=== PATIENT | female | born 1940 | race Caucasian/White ===

== ENCOUNTER 2016-06-26 13:36 | Emergency (ER) | payer MEDICARE ==
[2016-06-26] MEDS ORDERED: ASPIRIN 81 MG CHEWABLE TABLET PO ONE (13:50)
--- NOTE | 2016-06-26 13:54 | Emergency Department Record ---
History of Present Illness - General Chief Complaint: Chest Pain Stated Complaint: PAIN UNDER RT BREAST AND RT SIDE Time Seen by Provider: 06/26/16 13:49 Source: Patient, RN notes reviewed Mode of Arrival: Ambulatory - History of Present Illness Initial Comments: right chest walll pain worse with rotation of her shoulders and worse when I palpated in that area and she states slight congestion and cough. History of fibromyalgia MD Complaint: Chest pain Onset/Timin -: Days(s) Pain Location: Right chest Pain Radiation: Back Severity: Moderate Severity scale (1-10): 8 Quality: Dull, Sharp Consistency: Constant Improves With: Rest Worsens With: Exertion, Inspiration, Movement - Related Data Home Medications Medication Instructions Recorded Confirmed Last Taken Duloxetine HCl [Cymbalta] 60 mg PO DAILY 10/22/14 06/26/16 1 Day Ago Hydroxyzine HCl 25 mg PO TID 10/22/14 06/26/16 1 Day Ago Omeprazole [Prilosec] 40 mg PO DAILY 10/22/14 06/26/16 1 Day Ago Pregabalin [Lyrica] 225 mg PO BID 10/22/14 06/26/16 1 Day Ago Tiotropium [place] [Spiriva] 18 mcg IH DAILY 10/22/14 06/26/16 1 Day Ago Triazolam 1 - 2 tab PO QHS PRN 10/22/14 06/26/16 1 Day Ago Cholecalciferol (Vitamin D3) 50,000 unit PO WEEKLY 11/23/15 06/26/16 1 Day Ago [Vitamin D3] Naproxen [Naprosyn] 500 mg PO BID 11/23/15 06/26/16 1 Day Ago Acetaminophen [Tylenol 500Mg Tab] 500 mg PO Q6H 06/26/16 06/26/16 1 Day Ago Alendronate Sodium [Fosamax] 70 mg PO WEEKLY 06/26/16 06/26/16 1 Day Ago Amitriptyline HCl 100 mg PO QPM 06/26/16 06/26/16 1 Day Ago Benzonatate [Tessalon] 1 cap PO Q8H PRN 06/26/16 06/26/16 1 Day Ago Buspirone HCl [Buspar] 10 mg PO BID 06/26/16 06/26/16 1 Day Ago Hydrocodone/Acetaminophen [[place] 1 tab PO Q6H PRN 06/26/16 06/26/16 1 Day Ago 5mg/325mg] Multivitamin [Daily Multiple 1 each PO DAILY 06/26/16 06/26/16 1 Day Ago Vitamin] Previous Rx's Medication Instructions Recorded Amoxicillin [Amoxil] 500 mg PO TID #30 tab 06/26/16 Naproxen [Naprosyn] 500 mg PO Q12H #20 tab 06/26/16 Allergies Allergy/AdvReac Type Severity Reaction Status Date / Time nortriptyline HCl Allergy Unknown ALTERED Verified 06/26/16 13:52 [From [facility]] MENTAL STATUS Travel Screening - Travel/Exposure Within Last 30 Days Have you traveled within the last 30 days?: No - Travel/Exposure Within Last Year Have you traveled outside the [place] in the last year?: No - Additonal Travel Details Have you been exposed to anyone with a communicable illness?: No - Travel Symptoms Symptom Screening: None Review of Systems Reviewed: No additional complaints except as noted below Constitutional: Reports: As per HPI. Denies: Chills, Fever, Malaise, Night sweats, Weakness, Weight change Eyes: Reports: As per HPI. Denies: Eye discharge, Eye pain, Photophobia, Vision change ENT: Reports: As per HPI. Denies: Congestion, Dental pain, Ear pain, Epistaxis , Hearing loss, Throat pain Respiratory: Reports: As per HPI. Denies: Cough, Dyspnea, Hemoptysis, Stridor, Wheezes Cardiovascular: Reports: As per HPI, Chest pain. Denies: Arrhythmia, Dyspnea on exertion, Edema, Murmurs, Orthopnea, Palpitations, Paroxysmal nocturnal dyspnea, Rheumatic Fever, Syncope Endocrine: Reports: As per HPI. Denies: Fatigue, Heat or cold intolerance, Polydipsia, Polyuria Gastrointestinal: Reports: As per HPI. Denies: Abdominal pain, Constipation, Diarrhea, Hematemesis, Hematochezia, Melena, Nausea, Vomiting Genitourinary: Reports: As per HPI. Denies: Abnormal menses, Discharge, Dyspareunia, Dysuria, Frequency, Hematuria, Incontinence, Retention, Urgency Musculoskeletal: Reports: As per HPI. Denies: Arthralgia, Back pain, Gout, Joint swelling, Myalgia, Neck pain Skin: Reports: As per HPI. Denies: Bruising, Change in color, Change in hair/ nails, Lesions, Pruritus, Rash Neurological: Reports: As per HPI. Denies: Abnormal gait, Confusion, Headache, Numbness, Paresthesias, Seizure, Tingling, Tremors, Vertigo, Weakness Psychiatric: Reports: As per HPI. Denies: Anxiety, Auditory hallucinations, Depression, Homicidal thoughts, Suicidal thoughts, Visual hallucinations Hematological/Lymphatic: Reports: As per HPI. Denies: Anemia, Blood Clots, Easy bleeding, Easy bruising, Swollen glands Past Medical History - SOCIAL HISTORY Smoking Status: Current every day smoker Alcohol Use: None Drug Use: None - RESPIRATORY Hx Respiratory Disorders: Yes Hx COPD: Yes - CARDIOVASCULAR Hx Cardio Disorders: No - NEURO Hx Neuro Disorders: Yes Hx Neuropathy: Yes - GI Hx GI Disorders: Yes Hx Reflux: Yes Hx of Polyps: Yes - Hx Genitourinary Disorders: No - ENDOCRINE Hx Endocrine Disorders: Yes Hx Thyroid Disease: Yes (Hyper) - MUSCULOSKELETAL Hx Musculoskeletal Disorders: Yes Hx Arthritis: Yes Hx Fibromyalgia: Yes Hx Osteoporosis: Yes - PSYCH Hx Psych Problems: Yes Hx Anxiety: Yes Hx Depression: Yes - HEMATOLOGY/ONCOLOGY Hx Hematology/Oncology Disorders: No Family Medical History Any Significant Family History?: Yes Family Hx Comment (NOT TO BE USED IN PLACE OF ITEMS BELOW): Unknown mimimal contact with family Hx Dementia: Mother Hx Heart Disease: Mother Physical Exam - General General Appearance: Alert, Oriented x3, Cooperative, No acute distress - Head Head exam: Normal inspection - Eye Eye exam: Normal appearance, PERRL Pupils: Normal accommodation - ENT ENT exam: Normal exam, Mucous membranes moist, Normal external ear exam, Normal orophraynx, TM's normal bilaterally Ear exam: Normal external inspection. negative: External canal tenderness Nasal Exam: Normal inspection. negative: Discharge, Sinus tenderness Mouth exam: Normal external inspection, Tongue normal Teeth exam: Normal inspection. negative: Dental caries Throat exam: Normal inspection. negative: Tonsillar erythema, Tonsillar exudate - Neck Neck exam: Normal inspection, Full ROM. negative: Tenderness - Respiratory Respiratory exam: Normal lung sounds bilaterally, Chest wall tenderness (right side and some in the area of the right scapula). negative: Respiratory distress - Cardiovascular Cardiovascular Exam: Regular rate, Normal rhythm, Normal heart sounds - GI/Abdominal GI/Abdominal exam: Soft, Normal bowel sounds. negative: Tenderness - Rectal Rectal exam: Deferred - exam: Deferred - Extremities Extremities exam: Normal inspection, Full ROM, Normal capillary refill. negative: Tenderness - Back Back exam: Reports: Normal inspection, Full ROM. Denies: Muscle spasm, Rash noted, Tenderness - Neurological Neurological exam: Alert, Normal gait, Oriented X3, Reflexes normal - Psychiatric Psychiatric exam: Normal affect, Normal mood - Skin Skin exam: Dry, Intact, Normal color, Warm Course Vital Signs 06/26/16 13:43 Temperature 98.2 F Pulse Rate 85 Respiratory 18 Rate Blood Pressure 195/98 Pulse Ox 94 L Medical Decision Making - Lab Data Result diagrams: 06/26/16 14:15 06/26/16 14:15 Disposition Clinical Impression: Bronchitis, Fibromyalgia muscle pain, Costochondritis, acute Disposition: Home, Self-Care Condition: (1) Good Instructions: Costochondritis (ED), Acute Bronchitis (ED) Additional Instructions: follow up with primary DrSeema in 2 days Prescriptions: Amoxicillin [Amoxil] 500 mg PO TID #30 tab Naproxen [Naprosyn] 500 mg PO Q12H #20 tab.dr Forms: Patient Portal Access Time of Disposition: 15:15
[2016-06-26 14:28] LABS: HEMATOCRIT 43.2 % (35.0-47.0); HEMOGLOBIN 14.8 gm/dl (11.6-16.0); MEAN CELL VOLUME 91.1 fl (81-97); MEAN CORPUSCULAR HEMOGLOBIN 31.2 pg (27-33); MEAN CORPUSCULAR HGB CONC 34.3 g/dl (32-36); MEAN PLATELET VOLUME 9.2 fl (7.4-10.4); PLATELET COUNT 305 K/uL (130-400); RED BLOOD COUNT 4.74 M/uL (3.80-5.40); RED CELL DISTRIBUTION WIDTH 15.6 % (11.5-14.5); WHITE BLOOD COUNT W/O DIFF 9.8 K/uL (4.2-12.2)
[2016-06-26 14:36] LABS: ANION GAP 11.7 (7-16); BLOOD UREA NITROGEN 13 mg/dL (7-17); CARBON DIOXIDE 22.3 mmol/L (22-30); CREATININE 0.9 mg/dL (0.52-1.04); EST GLOMERULAR FILTRATION RATE > 60 ml/min; GLUCOSE,RANDOM 135 mg/dL (70-110)
[2016-06-26] MEDS ORDERED: IPRATROPIUM/ALBUTEROL (0.5MG/3MG) NEB INH ONE (14:42)
[2016-06-26 14:49] LABS: CKMB 0.9 ug/L (0-6); TROPONIN I < 0.012 ng/mL (0.00-0.034)
--- NOTE | 2016-07-01 16:28 | RADIOLOGY REPORT ---
DATE: 06/26/2016 at 14:24 hours. EXAM: TWO-VIEW CHEST. HISTORY: Right lateral chest pain radiating to breast. Chronic obstructive pulmonary disease. COMPARISON: Chest x-ray dated 01/19/2016. TECHNIQUE: Two views of the chest were obtained. FINDINGS: The lungs are hyperinflated, although are otherwise clear. Slight articular prominence throughout the lungs, particularly at the lung bases consistent with chronic interstitial change. No infiltrate. Cardiomediastinal silhouette is top normal in size. The diaphragm is unremarkable. Osteopenia with minimal chronic compression deformity in the lower thoracic spine. IMPRESSION: 1. NO ACUTE INTRATHORACIC PROCESS WITH NO CHANGE. 2. EMPHYSEMA WITH CHRONIC INTERSTITIAL CHANGE. JOB NUMBER: [id number] [facility]
== END 2016-06-26 15:25 | disposition home or self-care (01) ==
LOC: ER 13:36
DX: J20.9 Acute bronchitis, unspecified (principal); M94.0 Chondrocostal junction syndrome [Tietze]; M79.7 Fibromyalgia; J44.9 Chronic obstructive pulmonary disease, unspecified; F17.210 Nicotine dependence, cigarettes, uncomplicated
CPT/HCPCS: 71020; 80048; 82553; 84484; 85027; 85730; 93005; 93010; 94640; 99284

== ENCOUNTER 2016-06-30 08:07 | Emergency (ER) | payer MEDICARE ==
--- NOTE | 2016-06-30 08:52 | Emergency Department Record ---
History of Present Illness - General Chief complaint: Nausea, Vomiting, Diarrhea Stated complaint: LOOSE STOOL Time Seen by Provider: 06/30/16 08:50 Source: Patient Mode of Arrival: Wheelchair - History of Present Illness Initial comments: diarrrhea stool times 20 over 24 hours and she is drinking water and coffee. Patient stopped her naprosyn already yesterday and she still has diarrhea. complaint: Diarrhea Onset/Timin -: Days(s) Improves with: None Worsens with: None Associated Symptoms: Malaise, Myalgias - Related Data Home Medications Medication Instructions Recorded Confirmed Last Taken Duloxetine HCl [Cymbalta] 60 mg PO DAILY 10/22/14 06/30/16 06/30/16 Hydroxyzine HCl 25 mg PO TID 10/22/14 06/30/16 06/30/16 Omeprazole [Prilosec] 40 mg PO DAILY 10/22/14 06/30/16 06/30/16 Pregabalin [Lyrica] 225 mg PO BID 10/22/14 06/30/16 06/30/16 Tiotropium [place] [Spiriva] 18 mcg IH DAILY 10/22/14 06/30/16 06/30/16 Triazolam 1 - 2 tab PO QHS PRN 10/22/14 06/30/16 06/30/16 Cholecalciferol (Vitamin D3) 50,000 unit PO WEEKLY 11/23/15 06/30/16 06/30/16 [Vitamin D3] Naproxen [Naprosyn] 500 mg PO BID 11/23/15 06/30/16 06/30/16 Acetaminophen [Tylenol 500Mg Tab] 500 mg PO Q6H 06/26/16 06/30/16 06/30/16 Alendronate Sodium [Fosamax] 70 mg PO WEEKLY 06/26/16 06/30/16 06/30/16 Amitriptyline HCl 100 mg PO QPM 06/26/16 06/30/16 06/30/16 Benzonatate [Tessalon] 1 cap PO Q8H PRN 06/26/16 06/30/16 06/30/16 Buspirone HCl [Buspar] 10 mg PO BID 06/26/16 06/30/16 06/30/16 Hydrocodone/Acetaminophen [[place] 1 tab PO Q6H PRN 06/26/16 06/30/16 06/30/16 5mg/325mg] Multivitamin [Daily Multiple 1 each PO DAILY 06/26/16 06/30/16 06/30/16 Vitamin] Previous Rx's Medication Instructions Recorded Amoxicillin [Amoxil] 500 mg PO TID #30 tab 06/26/16 Naproxen [Naprosyn] 500 mg PO Q12H #20 tab. 06/26/16 Loperamide HCl [Immodium] 2 mg PO Q6HR #10 capsule 06/30/16 Allergies Allergy/AdvReac Type Severity Reaction Status Date / Time nortriptyline HCl Allergy Unknown ALTERED Verified 06/30/16 08:13 [From [facility]] MENTAL STATUS Travel Screening - Travel/Exposure Within Last 30 Days Have you traveled within the last 30 days?: No - Travel/Exposure Within Last Year Have you traveled outside the [place] in the last year?: No - Additonal Travel Details Have you been exposed to anyone with a communicable illness?: No - Travel Symptoms Symptom Screening: None Review of Systems Reviewed: No additional complaints except as noted below Constitutional: Reports: As per HPI. Denies: Chills, Fever, Malaise, Night sweats, Weakness, Weight change Eyes: Reports: As per HPI. Denies: Eye discharge, Eye pain, Photophobia, Vision change ENT: Reports: As per HPI. Denies: Congestion, Dental pain, Ear pain, Epistaxis , Hearing loss, Throat pain Respiratory: Reports: As per HPI. Denies: Cough, Dyspnea, Hemoptysis, Stridor, Wheezes Cardiovascular: Reports: As per HPI. Denies: Arrhythmia, Chest pain, Dyspnea on exertion, Edema, Murmurs, Orthopnea, Palpitations, Paroxysmal nocturnal dyspnea, Rheumatic Fever, Syncope Endocrine: Reports: As per HPI. Denies: Fatigue, Heat or cold intolerance, Polydipsia, Polyuria Gastrointestinal: Reports: As per HPI, Diarrhea. Denies: Abdominal pain, Constipation, Hematemesis, Hematochezia, Melena, Nausea, Vomiting Genitourinary: Reports: As per HPI. Denies: Abnormal menses, Discharge, Dyspareunia, Dysuria, Frequency, Hematuria, Incontinence, Retention, Urgency Musculoskeletal: Reports: As per HPI. Denies: Arthralgia, Back pain, Gout, Joint swelling, Myalgia, Neck pain Skin: Reports: As per HPI. Denies: Bruising, Change in color, Change in hair/ nails, Lesions, Pruritus, Rash Neurological: Reports: As per HPI. Denies: Abnormal gait, Confusion, Headache, Numbness, Paresthesias, Seizure, Tingling, Tremors, Vertigo, Weakness Psychiatric: Reports: As per HPI. Denies: Anxiety, Auditory hallucinations, Depression, Homicidal thoughts, Suicidal thoughts, Visual hallucinations Hematological/Lymphatic: Reports: As per HPI. Denies: Anemia, Blood Clots, Easy bleeding, Easy bruising, Swollen glands Past Medical History - SOCIAL HISTORY Smoking Status: Current every day smoker Alcohol Use: None Drug Use: None - RESPIRATORY Hx Respiratory Disorders: Yes Hx COPD: Yes - CARDIOVASCULAR Hx Cardio Disorders: No - NEURO Hx Neuro Disorders: Yes Hx Neuropathy: Yes - GI Hx GI Disorders: Yes Hx Reflux: Yes Hx of Polyps: Yes - Hx Genitourinary Disorders: No - ENDOCRINE Hx Endocrine Disorders: Yes Hx Thyroid Disease: Yes (Hyper) - MUSCULOSKELETAL Hx Musculoskeletal Disorders: Yes Hx Arthritis: Yes Hx Fibromyalgia: Yes Hx Osteoporosis: Yes - PSYCH Hx Psych Problems: Yes Hx Anxiety: Yes Hx Depression: Yes - HEMATOLOGY/ONCOLOGY Hx Hematology/Oncology Disorders: No Family Medical History Any Significant Family History?: Yes Family Hx Comment (NOT TO BE USED IN PLACE OF ITEMS BELOW): Unknown mimimal contact with family Hx Dementia: Mother Hx Heart Disease: Mother Physical Exam - General General Appearance: Alert, Oriented x3, Cooperative, No acute distress - Head Head exam: Normal inspection - Eye Eye exam: Normal appearance, PERRL Pupils: Normal accommodation - ENT ENT exam: Normal exam, Mucous membranes moist, Normal external ear exam, Normal orophraynx, TM's normal bilaterally Ear exam: Normal external inspection. negative: External canal tenderness Nasal Exam: Normal inspection. negative: Discharge, Sinus tenderness Mouth exam: Normal external inspection, Tongue normal Teeth exam: Normal inspection. negative: Dental caries Throat exam: Normal inspection. negative: Tonsillar erythema, Tonsillar exudate - Neck Neck exam: Normal inspection, Full ROM. negative: Tenderness - Respiratory Respiratory exam: Normal lung sounds bilaterally. negative: Respiratory distress - Cardiovascular Cardiovascular Exam: Regular rate, Normal rhythm, Normal heart sounds - GI/Abdominal GI/Abdominal exam: Soft, Normal bowel sounds. negative: Tenderness - Rectal Rectal exam: Deferred - exam: Deferred - Extremities Extremities exam: Normal inspection, Full ROM, Normal capillary refill. negative: Tenderness - Back Back exam: Reports: Normal inspection, Full ROM. Denies: Muscle spasm, Rash noted, Tenderness - Neurological Neurological exam: Alert, Normal gait, Oriented X3, Reflexes normal - Psychiatric Psychiatric exam: Normal affect, Normal mood - Skin Skin exam: Dry, Intact, Normal color, Warm Course Vital Signs 06/30/16 08:35 Temperature 97.7 F Pulse Rate 101 H Respiratory 18 Rate Blood Pressure 159/77 Pulse Ox 97 Medical Decision Making - Data Complexity MDM Data: Labs Ordered and/or Reviewed (negative) - Lab Data Result diagrams: 06/30/16 09:25 06/30/16 09:31 Disposition Clinical Impression: Acute diarrhea Disposition: Home, Self-Care Condition: (1) Good Instructions: Acute Diarrhea (ED) Additional Instructions: clear liquids follow up with in 3 days Prescriptions: Loperamide HCl [Immodium] 2 mg PO Q6HR #10 capsule Forms: Patient Portal Access Time of Disposition: 10:21
[2016-06-30] MEDS: 0.9 % SODIUM CHLORIDE 1,000 ML BAG IV ONE (09:25)
[2016-06-30 09:40] LABS: HEMATOCRIT 48.3 % (35.0-47.0); HEMOGLOBIN 16.9 gm/dl (11.6-16.0); MEAN CELL VOLUME 90.3 fl (81-97); MEAN PLATELET VOLUME 8.7 fl (7.4-10.4); PLATELET COUNT 374 K/uL (130-400); RED BLOOD COUNT 5.35 M/uL (3.80-5.40); RED CELL DISTRIBUTION WIDTH 15.8 % (11.5-14.5); WHITE BLOOD COUNT W/O DIFF 11.7 K/uL (4.2-12.2)
[2016-06-30 09:41] LABS: MEAN CORPUSCULAR HEMOGLOBIN 31.5 pg (27-33)
[2016-06-30 09:47] LABS: ANION GAP 13.5 (7-16); BLOOD UREA NITROGEN 12 mg/dL (7-17); CARBON DIOXIDE 22.5 mmol/L (22-30); CREATININE 0.9 mg/dL (0.52-1.04); EST GLOMERULAR FILTRATION RATE > 60 ml/min; GLUCOSE,RANDOM 103 mg/dL (70-110)
[2016-06-30 10:01] LABS: PLATELET ESTIMATE NORMAL (NORMAL)
== END 2016-06-30 10:45 | disposition home or self-care (01) ==
LOC: ER 08:07
DX: R19.7 Diarrhea, unspecified (principal); R11.2 Nausea with vomiting, unspecified; R53.81 Other malaise
CPT/HCPCS: 80048; 85027; 87427; 87493; 96360; 99284; J7030

== ENCOUNTER 2016-10-09 11:16 | Emergency (ER) | payer MEDICARE ==
[2016-10-09] MEDS: KETOROLAC 60 MG/2 ML VIAL IM STA (12:23)
--- NOTE | 2016-10-09 12:33 | Emergency Department Record ---
History of Present Illness - General Chief complaint: Pain Stated complaint: PAIN Time Seen by Provider: 10/09/16 11:42 Source: Patient, RN notes reviewed Mode of Arrival: Ambulatory - History of Present Illness Initial comments: this feels like her typical back pain but worse and it mostly in the back left thorcic side and worse with motion of her shoulders and palpation of her left thoracic area. Her Dr. will only give her 30 norco's per month and she takes three norcos per day.No chest pain or abdominal pain or leg or arm pains except for her underlying firbromylasia pain. Location: Other History of Same: Yes Radiation: Proximal, Distal Severity scale (1-10): 10 Quality: Aching Consistency: Constant Improves with: Nothing Worsens with: Nothing Associated Symptoms: Denies other symptoms - Related Data Home Medications Medication Instructions Recorded Confirmed Last Taken Duloxetine HCl [Cymbalta] 60 mg PO DAILY 10/22/14 10/09/16 10/08/16 Omeprazole [Prilosec] 40 mg PO DAILY 10/22/14 10/09/16 10/08/16 Pregabalin [Lyrica] 225 mg PO BID 10/22/14 10/09/16 10/08/16 Tiotropium [place] [Spiriva] 18 mcg IH DAILY 10/22/14 10/09/16 10/08/16 Triazolam 1 - 2 tab PO QHS PRN 10/22/14 10/09/16 10/08/16 Cholecalciferol (Vitamin D3) 50,000 unit PO WEEKLY 11/23/15 10/09/16 10/08/16 [Vitamin D3] Naproxen [Naprosyn] 500 mg PO BID 11/23/15 10/09/16 10/08/16 Acetaminophen [Tylenol 500Mg Tab] 500 mg PO Q6H 06/26/16 10/09/16 10/08/16 Amitriptyline HCl 100 mg PO QPM 06/26/16 10/09/16 10/08/16 Buspirone HCl [Buspar] 10 mg PO BID 06/26/16 10/09/16 10/08/16 Hydrocodone/Acetaminophen [[place] 1 tab PO Q6H PRN 06/26/16 10/09/16 10/08/16 5mg/325mg] Multivitamin [Daily Multiple 1 each PO DAILY 06/26/16 10/09/16 10/08/16 Vitamin] Temazepam [Restoril] 15 mg PO QHS 10/09/16 10/09/16 Unknown Previous Rx's Medication Instructions Recorded Naproxen [Naprosyn] 500 mg PO Q12H #20 tab. 06/26/16 Hydrocodone/Acetaminophen [[place] 1 tab PO Q6H PRN #6 tab 10/09/16 5mg/325mg] Allergies Allergy/AdvReac Type Severity Reaction Status Date / Time nortriptyline HCl Allergy Unknown ALTERED Verified 10/09/16 11:45 [From [facility]] MENTAL STATUS Travel Screening - Travel/Exposure Within Last 30 Days Have you traveled within the last 30 days?: No Review of Systems Reviewed: No additional complaints except as noted below Constitutional: Reports: As per HPI. Denies: Chills, Fever, Malaise, Night sweats, Weakness, Weight change Eyes: Reports: As per HPI. Denies: Eye discharge, Eye pain, Photophobia, Vision change ENT: Reports: As per HPI. Denies: Congestion, Dental pain, Ear pain, Epistaxis , Hearing loss, Throat pain Respiratory: Reports: As per HPI. Denies: Cough, Dyspnea, Hemoptysis, Stridor, Wheezes Cardiovascular: Reports: As per HPI. Denies: Arrhythmia, Chest pain, Dyspnea on exertion, Edema, Murmurs, Orthopnea, Palpitations, Paroxysmal nocturnal dyspnea, Rheumatic Fever, Syncope Endocrine: Reports: As per HPI. Denies: Fatigue, Heat or cold intolerance, Polydipsia, Polyuria Gastrointestinal: Reports: As per HPI. Denies: Abdominal pain, Constipation, Diarrhea, Hematemesis, Hematochezia, Melena, Nausea, Vomiting Genitourinary: Reports: As per HPI. Denies: Abnormal menses, Discharge, Dyspareunia, Dysuria, Frequency, Hematuria, Incontinence, Retention, Urgency Musculoskeletal: Reports: As per HPI, Back pain. Denies: Arthralgia, Gout, Joint swelling, Myalgia, Neck pain Skin: Reports: As per HPI. Denies: Bruising, Change in color, Change in hair/ nails, Lesions, Pruritus, Rash Neurological: Reports: As per HPI. Denies: Abnormal gait, Confusion, Headache, Numbness, Paresthesias, Seizure, Tingling, Tremors, Vertigo, Weakness Psychiatric: Reports: As per HPI. Denies: Anxiety, Auditory hallucinations, Depression, Homicidal thoughts, Suicidal thoughts, Visual hallucinations Hematological/Lymphatic: Reports: As per HPI. Denies: Anemia, Blood Clots, Easy bleeding, Easy bruising, Swollen glands Past Medical History - SOCIAL HISTORY Smoking Status: Current every day smoker Alcohol Use: None Drug Use: None - RESPIRATORY Hx Respiratory Disorders: Yes Hx COPD: Yes - CARDIOVASCULAR Hx Cardio Disorders: No - NEURO Hx Neuro Disorders: Yes Hx Neuropathy: Yes - GI Hx GI Disorders: Yes Hx Reflux: Yes Hx of Polyps: Yes - Hx Genitourinary Disorders: No - ENDOCRINE Hx Endocrine Disorders: Yes Hx Thyroid Disease: Yes (Hyper) - MUSCULOSKELETAL Hx Musculoskeletal Disorders: Yes Hx Arthritis: Yes Hx Fibromyalgia: Yes Hx Osteoporosis: Yes - PSYCH Hx Psych Problems: Yes Hx Anxiety: Yes Hx Depression: Yes - HEMATOLOGY/ONCOLOGY Hx Hematology/Oncology Disorders: No Family Medical History Any Significant Family History?: Yes Family Hx Comment (NOT TO BE USED IN PLACE OF ITEMS BELOW): Unknown mimimal contact with family Hx Dementia: Mother Hx Heart Disease: Mother Physical Exam - General General Appearance: Alert, Oriented x3, Cooperative, No acute distress - Head Head exam: Normal inspection - Eye Eye exam: Normal appearance, PERRL Pupils: Normal accommodation - ENT ENT exam: Normal exam, Mucous membranes moist, Normal external ear exam, Normal orophraynx, TM's normal bilaterally Ear exam: Normal external inspection. negative: External canal tenderness Nasal Exam: Normal inspection. negative: Discharge, Sinus tenderness Mouth exam: Normal external inspection, Tongue normal Teeth exam: Normal inspection. negative: Dental caries Throat exam: Normal inspection. negative: Tonsillar erythema, Tonsillar exudate - Neck Neck exam: Normal inspection, Full ROM. negative: Tenderness - Respiratory Respiratory exam: Normal lung sounds bilaterally. negative: Respiratory distress - Cardiovascular Cardiovascular Exam: Regular rate, Normal rhythm, Normal heart sounds - GI/Abdominal GI/Abdominal exam: Soft, Normal bowel sounds. negative: Tenderness - Rectal Rectal exam: Deferred - exam: Deferred - Extremities Extremities exam: Normal inspection, Full ROM, Normal capillary refill. negative: Tenderness - Back Back exam: Reports: Normal inspection, Full ROM. Denies: Muscle spasm, Rash noted, Tenderness - Neurological Neurological exam: Alert, Normal gait, Oriented X3, Reflexes normal - Psychiatric Psychiatric exam: Normal affect, Normal mood - Skin Skin exam: Dry, Intact, Normal color, Warm Course Vital Signs 10/09/16 11:39 Temperature 98.0 F Pulse Rate 98 H Respiratory 20 Rate Blood Pressure 103/71 Pulse Ox 92 L Disposition Clinical Impression: Thoracic myofascial strain Qualifiers: Encounter type: initial encounter Qualified Code(s): S29.019A - Strain of muscle and tendon of unspecified wall of thorax, initial encounter Disposition: Home, Self-Care Condition: (1) Good Instructions: Musculoskeletal Pain (ED) Additional Instructions: follow up with family Prescriptions: Hydrocodone/Acetaminophen [[place] 5mg/325mg] 1 tab PO Q6H PRN #6 tab PRN Reason: Pain - General Forms: Patient Portal Access Time of Disposition: 13:19
[2016-10-09 12:39] LABS: URINE APPEARANCE CLEAR; URINE BILIRUBIN SMALL (NEGATIVE); URINE BLOOD NEGATIVE (NEGATIVE); URINE COLOR YELLOW; URINE GLUCOSE (UA) NEGATIVE (NEGATIVE); URINE KETONE TRACE (NEGATIVE); URINE LEUKOCYTE ESTERASE NEGATIVE (NEGATIVE); URINE NITRITE NEGATIVE (NEGATIVE); URINE PROTEIN TRACE (NEGATIVE)
== END 2016-10-09 13:32 | disposition home or self-care (01) ==
LOC: ER 11:16
DX: S29.019A Strain of muscle and tendon of unspecified wall of thorax, initial encounter (principal); X58.XXXA Exposure to other specified factors, initial encounter; M79.7 Fibromyalgia
CPT/HCPCS: 81003; 96372; 99283; J1885

== ENCOUNTER 2017-06-11 06:13 | Emergency (ER) | payer MEDICARE ==
[2017-06-11] MEDS ORDERED: Diph,Pert(Acell),Tet Vac 0.5 ML SYR IM ONE (06:31)
--- NOTE | 2017-06-11 06:34 | Emergency Department Record ---
History of Present Illness - General Stated complaint: LACERATION Source: Patient, Family Mode of Arrival: Wheelchair Limitations: No limitations - History of Present Illness Initial comments: 76 yo female presents with a left lower leg injury. The patient was walking and tripped into a metal stool. She lacerated her left lower leg. She has a superficial skin tear. No other injuries. She is able to bear weight. She is up to date on tetanus. She is not on any blood thinners. No other recent changes in her health. MD Complaint: Other (left dotson skin tear) Location: Left, Lower Leg History of Same: No Radiation: Distal Quality: Aching Consistency: Constant Improves with: Nothing Worsens with: Nothing Associated Symptoms: Denies other symptoms - Related Data Allergies Allergy/AdvReac Type Severity Reaction Status Date / Time nortriptyline HCl Allergy Unknown ALTERED Verified 10/09/16 11:45 [facility] MENTAL STATUS Review of Systems Constitutional: Denies: Chills, Fever, Malaise, Weakness Eyes: Denies: Eye discharge ENT: Denies: Congestion, Throat pain Respiratory: Denies: Cough Cardiovascular: Denies: Chest pain, Syncope Endocrine: Denies: Fatigue Gastrointestinal: Denies: Abdominal pain, Diarrhea, Nausea, Vomiting Genitourinary: Denies: Dysuria, Urgency Musculoskeletal: Reports: Myalgia. Denies: Arthralgia, Back pain, Joint swelling, Neck pain Skin: Reports: Bruising, Other (skin tear) Neurological: Denies: Headache, Numbness, Weakness Psychiatric: Denies: Anxiety Hematological/Lymphatic: Denies: Blood Clots, Easy bleeding, Easy bruising, Swollen glands Past Medical History - SOCIAL HISTORY Smoking Status: Current every day smoker Drug Use: None - RESPIRATORY Hx Respiratory Disorders: Yes Hx COPD: Yes - CARDIOVASCULAR Hx Cardio Disorders: No - NEURO Hx Neuro Disorders: Yes Hx Neuropathy: Yes - GI Hx GI Disorders: Yes Hx Reflux: Yes Hx of Polyps: Yes - Hx Genitourinary Disorders: No - ENDOCRINE Hx Endocrine Disorders: Yes Hx Thyroid Disease: Yes (Hyper) - MUSCULOSKELETAL Hx Musculoskeletal Disorders: Yes Hx Arthritis: Yes Hx Fibromyalgia: Yes Hx Osteoporosis: Yes - PSYCH Hx Psych Problems: Yes Hx Anxiety: Yes Hx Depression: Yes - HEMATOLOGY/ONCOLOGY Hx Hematology/Oncology Disorders: No Family Medical History Family Hx Comment (NOT TO BE USED IN PLACE OF ITEMS BELOW): Unknown mimimal contact with family Hx Dementia: Mother Hx Heart Disease: Mother Physical Exam - General General Appearance: Alert, Oriented x3, Cooperative, No acute distress Limitations: No limitations - Head Head exam: Atraumatic, Normocephalic, Normal inspection - Eye Eye exam: Normal appearance. negative: Conjunctival injection, Periorbital swelling, Scleral icterus - ENT ENT exam: Normal exam, Mucous membranes moist Ear exam: Normal external inspection Nasal Exam: Normal inspection Mouth exam: Normal external inspection - Neck Neck exam: Normal inspection - Cardiovascular Cardiovascular Exam: Regular rate, Normal rhythm, Normal heart sounds Peripheral Pulses: 2+: Dorsalis Pedis (L) - GI/Abdominal GI/Abdominal exam: negative: Tenderness - Rectal Rectal exam: Deferred - exam: Deferred - Extremities Extremities exam: Full ROM. negative: Normal inspection, Pedal edema Image of Full Body: 1 - 5cm flap like skin tear, no FB, superfical - Back Back exam: Denies: CVA tenderness (R), CVA tenderness (L), Tenderness - Neurological Neurological exam: Alert, Oriented X3 - Psychiatric Psychiatric exam: Normal affect, Normal mood - Skin Skin exam: Other (skin tear as above) Course - Reevaluation(s) Reevaluation #1: 06/11/17 06:41 The superficial skin tear was clean with Shur clens and irrigated with NS The flap is very thin After drying the skin was re-approximated to cover about 90% of the wound Benzoin and SteriStrips were used to hold the skin in place XR ordered of the LLE as well We discussed the likely benefit and need for close follow up with the PCP and suggested a wound clinic referral as this superficial skin tear may have prolonged healing time. 06/11/17 07:00 The XR was reviewed No visible osseous injury Disposition Disposition: Discharge Clinical Impression: Skin tear Disposition: Home, Self-Care Condition: (1) Good Instructions: Skin Tear (ED) Additional Instructions: Call Dr Victor for close follow up to recheck the skin tear Skin tear injuries such as this can take a longer time to heal and may require a wound care referral Return if you have pain, pus, redness, fever or any new concerns. Time of Disposition: 07:10 Quality - Quality Measures Quality Measures: N/A - Blood Pressure Screening Does Patient Have Any of the Following: No Blood Pressure Classification: Hypertensive Reading Systolic Measurement: 148 Diastolic Measurement: 69 Screening for High Blood Pressure: < Pre-Hypertensive BP, F/U Documented > [ G8950] Pre-Hypertensive Follow-up Interventions: Referral to alternative/primary care provider.
--- NOTE | 2017-06-12 07:28 | RADIOLOGY REPORT ---
EXAM: LEFT LOWER LEG HISTORY: PATIENT FELL WITH LEFT LEG CONTUSION AND SKIN LACERATION. TECHNIQUE: AP and lateral views of the left lower leg were obtained. Comparison: No prior left lower leg series. Encounter: Initial. FINDINGS: Diffuse osteopenia is seen consistent with osteoporosis. No definite acute fracture of the left lower leg identified. Some degenerative arthritis at the knee evident. IMPRESSION: OSTEOPOROSIS. NO DEFINITE FRACTURE OF THE LEFT LOWER LEG IDENTIFIED. JOB NUMBER: [id number] MTDD
== END 2017-06-11 07:12 | disposition home or self-care (01) ==
LOC: ER 06:13
DX: S81.812A Laceration without foreign body, left lower leg, initial encounter (principal); J44.9 Chronic obstructive pulmonary disease, unspecified; W18.09XA Striking against other object with subsequent fall, initial encounter; I10 Essential (primary) hypertension; F17.210 Nicotine dependence, cigarettes, uncomplicated
CPT/HCPCS: 90715; 96372; 99283; 99284

== ENCOUNTER 2017-08-11 17:36 | Emergency (ER) | payer MEDICARE ==
[2017-08-11] MEDS ORDERED: ONDANSETRON HCL IV 4 MG/2 ML VIAL IV ONE (18:06)
[2017-08-11] MEDS ORDERED: 0.9 % SODIUM CHLORIDE 1,000 ML BAG IV ONE (18:06)
--- NOTE | 2017-08-11 18:06 | Emergency Department Record ---
History of Present Illness - General Chief Complaint: Abdominal Pain Stated Complaint: ABDOMINAL PAIN,CANT EAT Time Seen by Provider: 08/11/17 17:39 Source: Patient Mode of Arrival: Ambulatory Limitations: No limitations - History of Present Illness Initial Comments: The patient is here due to abdominal pain off and on for a week. The pain is all over and did get worse the last couple of days ago. She did have some loose stools 2 days ago and then they resolved. Now there is pain and nausea but no vomiting. The patient denies any fever, back pain, dysuria, or any CP, SOB, or SHANON. The patient states her only abdominal surgery is having her Appendix removed. MD Complaint: Abdominal pain Onset/Timin -: Week(s) Radiation: None Migration to: No migration Severity: Moderate Quality: Other Consistency: Constant Improves With: Nothing Worsens With: Eating, Movement Associated Symptoms: Diarrhea - Related Data Allergies Allergy/AdvReac Type Severity Reaction Status Date / Time nortriptyline HCl Allergy Unknown ALTERED Verified 08/11/17 17:54 [facility] MENTAL STATUS Travel Screening - Travel/Exposure Within Last 30 Days Have you traveled within the last 30 days?: Yes Location Detail:: [place] - Travel/Exposure Within Last Year Have you traveled outside the [place] in the last year?: No - Additonal Travel Details Have you been exposed to anyone with a communicable illness?: No - Travel Symptoms Symptom Screening: None Review of Systems Constitutional: Denies: Chills, Fever Eyes: Denies: Eye discharge ENT: Denies: Congestion Respiratory: Denies: Cough, Dyspnea Cardiovascular: Denies: Arrhythmia, Chest pain Endocrine: Denies: Fatigue Gastrointestinal: Reports: Abdominal pain, Diarrhea, Nausea. Denies: Vomiting Genitourinary: Denies: Dysuria Musculoskeletal: Denies: Back pain Past Medical History - SOCIAL HISTORY Smoking Status: Current every day smoker Alcohol Use: None Drug Use: None - RESPIRATORY Hx Respiratory Disorders: Yes Hx COPD: Yes - CARDIOVASCULAR Hx Cardio Disorders: No - NEURO Hx Neuro Disorders: Yes Hx CVA: Yes (2017) Hx Neuropathy: Yes - GI Hx GI Disorders: Yes Hx Reflux: Yes Hx of Polyps: Yes - Hx Genitourinary Disorders: No Comment:: Pt states kidney infections as child. None recently - ENDOCRINE Hx Endocrine Disorders: Yes Hx Thyroid Disease: Yes (Hyper) - MUSCULOSKELETAL Hx Musculoskeletal Disorders: Yes Hx Arthritis: Yes Hx Fibromyalgia: Yes Hx Osteoporosis: Yes - PSYCH Hx Psych Problems: Yes Hx Anxiety: Yes Hx Depression: Yes - HEMATOLOGY/ONCOLOGY Hx Hematology/Oncology Disorders: No Family Medical History Any Significant Family History?: No Family Hx Comment (NOT TO BE USED IN PLACE OF ITEMS BELOW): Unknown mimimal contact with family Hx Dementia: Mother Hx Heart Disease: Mother Physical Exam - General General Appearance: Alert, Oriented x3, Cooperative, No acute distress - Head Head exam: Atraumatic, Normocephalic, Normal inspection - Eye Eye exam: Normal appearance, PERRL - ENT Throat exam: Normal inspection. negative: Tonsillar erythema, Tonsillar exudate - Neck Neck exam: Normal inspection, Full ROM. negative: Tenderness - Respiratory Respiratory exam: Normal lung sounds bilaterally. negative: Respiratory distress, Rhonchi, Stridor, Wheezes - Cardiovascular Cardiovascular Exam: Regular rate, Normal rhythm, Normal heart sounds - GI/Abdominal GI/Abdominal exam: Soft, Tenderness (There is diffuse tenderness in all 4 quads worse in the lower abdomen.). negative: Distended, Guarding, Rebound, Rigid - Extremities Extremities exam: Normal inspection, Full ROM, Normal capillary refill. negative: Tenderness Course Vital Signs 08/11/17 17:38 Temperature 97.4 F L Pulse Rate 111 H Respiratory 20 Rate Blood Pressure 148/99 Pulse Ox 111 H - Reevaluation(s) Reevaluation #1: The patient is doing well at this time. She is on her way over to [place]. I did discuss the patient with Dr. Sheth who did assume care for her at 19:00 due to shift change. 08/11/17 18:56 Medical Decision Making - Data Complexity MDM Data: Labs Ordered and/or Reviewed - Lab Data Result diagrams: 08/11/17 18:03 08/11/17 18:03 Disposition Forms: Patient Portal Access Quality - Quality Measures Quality Measures: N/A - Blood Pressure Screening View Details: Yes Does Patient Have Any of the Following: Active Dx of HTN Blood Pressure Classification: Hypertensive Reading Systolic Measurement: 148 Diastolic Measurement: 99 Screening for High Blood Pressure: Patient Exclusion, Hx of HTN [G9744]
[2017-08-11] MEDS ORDERED: HYDROMORPHONE HCL 2 MG/ML VIAL IVP ONE (18:07)
[2017-08-11 18:22] LABS: BASO % 0.3 % (0-6); EOS % 1.3 % (0-6); GRAN % 56.7 % (47-80); HEMATOCRIT 44.6 % (35.0-47.0); LYMPH % 30.5 % (16-45); MEAN CELL VOLUME 87.6 fl (81-97); MEAN CORPUSCULAR HEMOGLOBIN 29.5 pg (27-33); MEAN CORPUSCULAR HGB CONC 33.6 g/dl (32-36); MEAN PLATELET VOLUME 8.7 fl (7.4-10.4); MONO % 11.2 % (0-9); PLATELET COUNT 316 K/uL (130-400); RED BLOOD COUNT 5.09 M/uL (3.80-5.40); RED CELL DISTRIBUTION WIDTH 15.6 % (11.5-14.5); WHITE BLOOD COUNT W/O DIFF 7.9 K/uL (4.2-12.2)
[2017-08-11 18:34] LABS: BLOOD UREA NITROGEN 11 mg/dL (8-23); CREATININE 0.7 mg/dL (0.5-0.9); EST GLOMERULAR FILTRATION RATE > 60 mL/min
[2017-08-11 18:35] LABS: TOTAL PROTEIN 6.5 g/dL (6.6-8.7)
[2017-08-11 18:37] LABS: GLUCOSE,RANDOM 126 mg/dL (74-109)
[2017-08-11 18:39] LABS: ALT/SGPT 13 U/L (<33); AST/SGOT 13 U/L (10.0-35.0)
[2017-08-11 18:40] LABS: ALBUMIN 4.1 g/dL (4.0-5.0); ALKALINE PHOSPHATASE 113 U/L (35-104); LIPASE 19 U/L (13-60)
[2017-08-11 18:41] LABS: BILIRUBIN,DIRECT < 0.2 mg/dL (0-0.3)
[2017-08-11 19:39] LABS: URINE APPEARANCE CLEAR; URINE BILIRUBIN NEGATIVE (NEGATIVE); URINE BLOOD NEGATIVE (NEGATIVE); URINE COLOR YELLOW; URINE GLUCOSE (UA) NEGATIVE (NEGATIVE); URINE KETONE NEGATIVE (NEGATIVE); URINE LEUKOCYTE ESTERASE NEGATIVE (NEGATIVE); URINE NITRITE NEGATIVE (NEGATIVE); URINE PROTEIN NEGATIVE (NEGATIVE); URINE UROBILINOGEN 0.2 E.U./dL (0.20 - 1.00)
--- NOTE | 2017-08-11 19:39 | Emergency Department Record ---
History of Present Illness - General Chief Complaint: Abdominal Pain Stated Complaint: ABDOMINAL PAIN,CANT EAT Time Seen by Provider: 08/11/17 17:39 Source: Patient Mode of Arrival: Ambulatory Limitations: No limitations - History of Present Illness Complaint: Abdominal pain Onset/Timin -: Week(s) Radiation: None Migration to: No migration Severity: Moderate Quality: Other Consistency: Constant Improves With: Nothing Worsens With: Eating, Movement Associated Symptoms: Diarrhea - Related Data Patient : No Previous Rx's Medication Instructions Recorded Hyoscyamine Sulfate [Levsin-Sl] 0.25 mg SL Q8H PRN #20 tab.subl 08/11/17 Allergies Allergy/AdvReac Type Severity Reaction Status Date / Time nortriptyline HCl Allergy Unknown ALTERED Verified 08/11/17 17:54 [From [facility]] MENTAL STATUS Travel Screening - Travel/Exposure Within Last 30 Days Have you traveled within the last 30 days?: Yes Location Detail:: [place] - Travel/Exposure Within Last Year Have you traveled outside the [place] in the last year?: No - Additonal Travel Details Have you been exposed to anyone with a communicable illness?: No - Travel Symptoms Symptom Screening: None Review of Systems Constitutional: Denies: Chills, Fever Eyes: Denies: Eye discharge ENT: Denies: Congestion Respiratory: Denies: Cough, Dyspnea Cardiovascular: Denies: Arrhythmia, Chest pain Endocrine: Denies: Fatigue Gastrointestinal: Reports: Abdominal pain, Diarrhea, Nausea. Denies: Vomiting Genitourinary: Denies: Dysuria Musculoskeletal: Denies: Back pain Past Medical History - SOCIAL HISTORY Smoking Status: Current every day smoker Alcohol Use: None Drug Use: None - RESPIRATORY Hx Respiratory Disorders: Yes Hx COPD: Yes - CARDIOVASCULAR Hx Cardio Disorders: No - NEURO Hx Neuro Disorders: Yes Hx CVA: Yes (2017) Hx Neuropathy: Yes - GI Hx GI Disorders: Yes Hx Reflux: Yes Hx of Polyps: Yes - Hx Genitourinary Disorders: No Comment:: Pt states kidney infections as child. None recently - ENDOCRINE Hx Endocrine Disorders: Yes Hx Thyroid Disease: Yes (Hyper) - MUSCULOSKELETAL Hx Musculoskeletal Disorders: Yes Hx Arthritis: Yes Hx Fibromyalgia: Yes Hx Osteoporosis: Yes - PSYCH Hx Psych Problems: Yes Hx Anxiety: Yes Hx Depression: Yes - HEMATOLOGY/ONCOLOGY Hx Hematology/Oncology Disorders: No Family Medical History Any Significant Family History?: No Family Hx Comment (NOT TO BE USED IN PLACE OF ITEMS BELOW): Unknown mimimal contact with family Hx Dementia: Mother Hx Heart Disease: Mother Physical Exam - General Limitations: No limitations Course Vital Signs 08/11/17 08/11/17 08/11/17 17:38 18:40 19:21 Temperature 97.4 F L Pulse Rate 111 H Pulse Rate [ 93 H 73 Pulse Ox Probe] Respiratory 20 16 18 Rate Blood Pressure 148/99 Blood Pressure 127/91 146/70 [Left Arm] Pulse Ox 97 96 95 - Reevaluation(s) Reevaluation #1: 08/11/17 19:38 CT Abdomen and Pelvis: No acute process Diverticulosis without diverticulitis Stool right colon Left renal cysts Chronic compression fractures T10, L1 Reevaluation #2: 08/11/17 19:42 Patient reassessed and updated on all results, reports that she is feeling much improved. Patient appears stable for discharge at this time on Levsin for her cramping symptoms with instructions to return to ED in 12-24 hours if symptoms fail to improve. Patient appears stable for discharge at this time. Medical Decision Making - Lab Data Result diagrams: 08/11/17 18:03 08/11/17 18:03 Lab Results 08/11/17 08/11/17 Range/Units 18:03 18:03 WBC 7.9 (4.2-12.2) K/uL RBC 5.09 (3.80-5.40) M/uL Hgb 15.0 (11.6-16.0) gm/dl Hct 44.6 (35.0-47.0) % MCV 87.6 (81-97) fl MCH 29.5 (27-33) pg MCHC 33.6 (32-36) g/dl RDW 15.6 H (11.5-14.5) % Plt Count 316 (130-400) K/uL MPV 8.7 (7.4-10.4) fl Gran % 56.7 (47-80) % Lymphocytes % 30.5 (16-45) % Monocytes % 11.2 H (0-9) % Eosinophils % 1.3 (0-6) % Basophils % 0.3 (0-6) % Sodium 139 (136-145) mmol/L Potassium 3.8 (3.4-4.5) mmol/L Chloride 100 (98-107) mmol/L Carbon Dioxide 26.0 (22-29) mmol/L Anion Gap 13.0 (7-16) BUN 11 (8-23) mg/dL Creatinine 0.7 (0.5-0.9) mg/dL Estimated GFR > 60 mL/min Random Glucose 126 H (74-109) mg/dL Calcium 9.1 (8.8-10.2) mg/dL Total Bilirubin 0.50 (0.2-1.0) mg/dL Direct Bilirubin < 0.2 (0-0.3) mg/dL AST 13 (10.0-35.0) U/L ALT 13 (<33) U/L Alkaline Phosphatase 113 H (35-104) U/L Total Protein 6.5 L (6.6-8.7) g/dL Albumin 4.1 (4.0-5.0) g/dL Lipase 19 (13-60) U/L Disposition Disposition: Discharge Clinical Impression: Abdominal pain Qualifiers: Abdominal location: generalized Qualified Code(s): R10.84 - Generalized abdominal pain Disposition: Home, Self-Care Condition: (2) Stable Instructions: Abdominal Pain (ED) Additional Instructions: Return to ED in 12-24 hours if your symptoms worsen or if you have any concerns. Levsin as directed. Follow-up with your family doctor in 3-5 days as directed. Prescriptions: Hyoscyamine Sulfate [Levsin-Sl] 0.25 mg SL Q8H PRN #20 tab.subl PRN Reason: Abdominal Pain Forms: Patient Portal Access Time of Disposition: 19:46 Quality - Quality Measures Quality Measures: N/A - Blood Pressure Screening Does Patient Have Any of the Following: No Blood Pressure Classification: Hypertensive Reading Systolic Measurement: 148 Diastolic Measurement: 99 Screening for High Blood Pressure: < First Hypertensive BP, F/U Documented > [ G8950] First Hypertensive Follow-up Interventions: Referral to alternative/primary care provider.
--- NOTE | 2017-08-12 13:30 | CT SCAN REPORT ---
EXAM: CT SCAN OF THE ABDOMEN AND PELVIS WITH CONTRAST HISTORY: ABDOMINAL PAIN FOR THE PAST FEW DAYS. DIARRHEA ON FRIDAY. TECHNIQUE: Standard CT imaging of the abdomen and pelvis was performed with oral and intravenous contrast. 100 ml of Omnipaque 300 were administered. Comparison: 08/22/11. FINDINGS: There is mild atelectasis or scarring at the lung bases. The liver is normal. The gallbladder, biliary tree, pancreas, spleen, and adrenal glands are normal. A 2.1 cm cyst is present within the lateral cortex of the left kidney. Additional tiny cortical cysts are present within both kidneys. There is no hydronephrosis or urinary tract calculus. There are moderate atherosclerotic changes within the aorta with no aneurysm or dissection. There is no retroperitoneal lymphadenopathy. The stomach and epigastrium appear normal. There is moderate stool within the right side of the colon. The remainder of the colon is unremarkable. There are a few scattered diverticula within the sigmoid region with no evidence for acute diverticulitis. There is no pneumoperitoneum or ascites. The uterus and adnexa appear normal. A tiny residual cyst within the left ovary is unchanged. The urinary bladder is unremarkable. The patient is status post umbilical hernia repair. The abdominal wall is otherwise unremarkable. Degenerative changes are present within the spine. There are no acute osseous abnormalities. Chronic appearing compression deformities are present within the T10 and L1 vertebral bodies. IMPRESSION: 1. NO ACUTE INTRAABDOMINAL PATHOLOGY. 2. MINOR SIGMOID DIVERTICULOSIS WITH NO DIVERTICULITIS. 3. MODERATE STOOL WITHIN THE RIGHT COLON. 4. LEFT RENAL CYSTS. 5. CHRONIC APPEARING COMPRESSION DEFORMITIES OF THE T10 AND L1 VERTEBRAL BODIES. JOB NUMBER: [id number] MTDD
== END 2017-08-11 20:02 | disposition home or self-care (01) ==
LOC: ER 17:36
DX: R10.84 Generalized abdominal pain (principal); R19.7 Diarrhea, unspecified; J44.9 Chronic obstructive pulmonary disease, unspecified; F17.210 Nicotine dependence, cigarettes, uncomplicated
CPT/HCPCS: 99284 ×2; 96374; 96375; 96361; 83690; 85025; 80076; 80048; 81003; 74177; Q9967; J2405; J1170; J7030

== ENCOUNTER 2017-08-16 09:16 | Inpatient (IN) | payer MEDICARE ==
[2017-08-16] MEDS ORDERED: 0.9 % SODIUM CHLORIDE 1,000 ML BAG IV ONE (09:27)
[2017-08-16] MEDS ORDERED: ONDANSETRON HCL IV 4 MG/2 ML VIAL IV ONE (09:27)
[2017-08-16 09:36] LABS: BASO % 0.2 % (0-6); EOS % 0.2 % (0-6); GRAN % 79.1 % (47-80); HEMATOCRIT 41.3 % (35.0-47.0); HEMOGLOBIN 13.7 gm/dl (11.6-16.0); MEAN CELL VOLUME 88.1 fl (81-97); MEAN CORPUSCULAR HEMOGLOBIN 29.2 pg (27-33); MEAN CORPUSCULAR HGB CONC 33.2 g/dl (32-36); MEAN PLATELET VOLUME 8.9 fl (7.4-10.4); MONO % 7.5 % (0-9); PLATELET COUNT 349 K/uL (130-400); RED BLOOD COUNT 4.69 M/uL (3.80-5.40); RED CELL DISTRIBUTION WIDTH 15.8 % (11.5-14.5)
--- NOTE | 2017-08-16 09:47 | Emergency Department Record ---
History of Present Illness - General Chief complaint: Vomiting Stated complaint: VOMITING Time Seen by Provider: 08/16/17 09:26 Source: Patient, RN notes reviewed Mode of Arrival: Wheelchair - History of Present Illness Initial comments: vomiting started last night and she has vomited multiple times and she cam into the ED vomiting and she claims a headache and no diarrhea but she had diarrhea 6 days ago and seen in the ED at [facility] with a CT of abdomin which was negative. PSH appedectomy, patient was given levsin SL last ED visit. MD complaint: Vomiting Onset/Timin -: Hour(s) Description of Vomiting: Other Associated Abdominal Pain: Yes Location: Periumbilcal Severity scale (1-10): 5 Quality: Other Improves with: None Worsens with: None Associated Symptoms: Nausea/vomiting - Related Data Previous Rx's Medication Instructions Recorded Hyoscyamine Sulfate [Levsin-Sl] 0.25 mg SL Q8H PRN #20 tab.subl 08/11/17 Allergies Allergy/AdvReac Type Severity Reaction Status Date / Time nortriptyline HCl Allergy Unknown ALTERED Verified 08/11/17 17:54 [From [facility]] MENTAL STATUS Travel Screening - Travel/Exposure Within Last 30 Days Have you traveled within the last 30 days?: No - Travel/Exposure Within Last Year Have you traveled outside the [place] in the last year?: No - Additonal Travel Details Have you been exposed to anyone with a communicable illness?: No - Travel Symptoms Symptom Screening: None Review of Systems Reviewed: No additional complaints except as noted below Constitutional: Reports: As per HPI. Denies: Chills, Fever, Malaise, Night sweats, Weakness, Weight change Eyes: Reports: As per HPI. Denies: Eye discharge, Eye pain, Photophobia, Vision change ENT: Reports: As per HPI. Denies: Congestion, Dental pain, Ear pain, Epistaxis , Hearing loss, Throat pain Respiratory: Reports: As per HPI. Denies: Cough, Dyspnea, Hemoptysis, Stridor, Wheezes Cardiovascular: Reports: As per HPI. Denies: Arrhythmia, Chest pain, Dyspnea on exertion, Edema, Murmurs, Orthopnea, Palpitations, Paroxysmal nocturnal dyspnea, Rheumatic Fever, Syncope Endocrine: Reports: As per HPI. Denies: Fatigue, Heat or cold intolerance, Polydipsia, Polyuria Gastrointestinal: Reports: As per HPI, Vomiting. Denies: Abdominal pain, Constipation, Diarrhea, Hematemesis, Hematochezia, Melena, Nausea Genitourinary: Reports: As per HPI. Denies: Abnormal menses, Discharge, Dyspareunia, Dysuria, Frequency, Hematuria, Incontinence, Retention, Urgency Musculoskeletal: Reports: As per HPI. Denies: Arthralgia, Back pain, Gout, Joint swelling, Myalgia, Neck pain Skin: Reports: As per HPI. Denies: Bruising, Change in color, Change in hair/ nails, Lesions, Pruritus, Rash Neurological: Reports: As per HPI. Denies: Abnormal gait, Confusion, Headache, Numbness, Paresthesias, Seizure, Tingling, Tremors, Vertigo, Weakness Psychiatric: Reports: As per HPI. Denies: Anxiety, Auditory hallucinations, Depression, Homicidal thoughts, Suicidal thoughts, Visual hallucinations Hematological/Lymphatic: Reports: As per HPI. Denies: Anemia, Blood Clots, Easy bleeding, Easy bruising, Swollen glands Past Medical History - SOCIAL HISTORY Smoking Status: Current every day smoker Alcohol Use: Rare Drug Use: None - RESPIRATORY Hx Respiratory Disorders: Yes Hx COPD: Yes - CARDIOVASCULAR Hx Cardio Disorders: No - NEURO Hx Neuro Disorders: Yes Hx CVA: Yes (2017) Hx Neuropathy: Yes - GI Hx GI Disorders: Yes Hx Reflux: Yes Hx of Polyps: Yes - Hx Genitourinary Disorders: No Comment:: Pt states kidney infections as child. None recently - ENDOCRINE Hx Endocrine Disorders: Yes Hx Thyroid Disease: Yes (Hyper) - MUSCULOSKELETAL Hx Musculoskeletal Disorders: Yes Hx Arthritis: Yes Hx Fibromyalgia: Yes Hx Osteoporosis: Yes - PSYCH Hx Psych Problems: Yes Hx Anxiety: Yes Hx Depression: Yes - HEMATOLOGY/ONCOLOGY Hx Hematology/Oncology Disorders: No Family Medical History Any Significant Family History?: No Family Hx Comment (NOT TO BE USED IN PLACE OF ITEMS BELOW): Unknown mimimal contact with family Hx Dementia: Mother Hx Heart Disease: Mother Physical Exam - General General Appearance: Alert, Oriented x3, Cooperative, Mild distress - Head Head exam: Normal inspection - Eye Eye exam: Normal appearance, PERRL Pupils: Normal accommodation - ENT ENT exam: Normal exam, Mucous membranes moist, Normal external ear exam, Normal orophraynx, TM's normal bilaterally Ear exam: Normal external inspection. negative: External canal tenderness Nasal Exam: Normal inspection. negative: Discharge, Sinus tenderness Mouth exam: Normal external inspection, Tongue normal Teeth exam: Normal inspection. negative: Dental caries Throat exam: Normal inspection. negative: Tonsillar erythema, Tonsillar exudate - Neck Neck exam: Normal inspection, Full ROM. negative: Tenderness - Respiratory Respiratory exam: Normal lung sounds bilaterally. negative: Respiratory distress - Cardiovascular Cardiovascular Exam: Regular rate, Normal rhythm, Normal heart sounds - GI/Abdominal GI/Abdominal exam: Soft, Normal bowel sounds. negative: Tenderness - Rectal Rectal exam: Deferred - exam: Deferred - Extremities Extremities exam: Normal inspection, Full ROM, Normal capillary refill. negative: Tenderness - Back Back exam: Reports: Normal inspection, Full ROM. Denies: Muscle spasm, Rash noted, Tenderness - Neurological Neurological exam: Alert, Normal gait, Oriented X3, Reflexes normal - Psychiatric Psychiatric exam: Normal affect, Normal mood - Skin Skin exam: Dry, Intact, Normal color, Warm Course Vital Signs 08/16/17 09:32 Temperature 98.0 F Pulse Rate 86 Respiratory 20 Rate Blood Pressure 164/90 Pulse Ox 89 L - Reevaluation(s) Reevaluation #1: discussed case with Darlyn and will admit inpatient to Dr. Chambers 08/16/17 12:36 08/16/17 12:38 Medical Decision Making - Data Complexity MDM Data: Labs Ordered and/or Reviewed (13,000), X-Ray Ordered and/or Reviewed ( Acute abd infiltate LLL of lung , nonspecific bowel gas, CT of head negative) - Lab Data Result diagrams: 08/16/17 09:25 08/16/17 09:25 Lab Results 08/16/17 Range/Units 09:25 WBC 13.0 H (4.2-12.2) K/uL RBC 4.69 (3.80-5.40) M/uL Hgb 13.7 (11.6-16.0) gm/dl Hct 41.3 (35.0-47.0) % MCV 88.1 (81-97) fl MCH 29.2 (27-33) pg MCHC 33.2 (32-36) g/dl RDW 15.8 H (11.5-14.5) % Plt Count 349 (130-400) K/uL MPV 8.9 (7.4-10.4) fl Gran % 79.1 (47-80) % Lymphocytes % 13.0 L (16-45) % Monocytes % 7.5 (0-9) % Eosinophils % 0.2 (0-6) % Basophils % 0.2 (0-6) % Disposition Clinical Impression: Vomiting Qualifiers: Vomiting type: unspecified Vomiting Intractability: non-intractable Nausea presence: with nausea Qualified Code(s): R11.2 - Nausea with vomiting, unspecified Pneumonia Qualifiers: Pneumonia type: due to unspecified organism Laterality: left Lung location: lower lobe of lung Qualified Code(s): J18.1 - Lobar pneumonia, unspecified organism Condition: (1) Good Forms: Patient Portal Access Time of Disposition: 12:37 Quality - Quality Measures Quality Measures: N/A - Blood Pressure Screening Does Patient Have Any of the Following: No Blood Pressure Classification: Hypertensive Reading Systolic Measurement: 164 Diastolic Measurement: 90 Screening for High Blood Pressure: < Pre-Hypertensive BP, F/U Documented > [ [id number]] Pre-Hypertensive Follow-up Interventions: Referral to alternative/primary care provider.
[2017-08-16 09:51] LABS: BLOOD UREA NITROGEN 16 mg/dL (8-23); CREATININE 0.7 mg/dL (0.5-0.9); EST GLOMERULAR FILTRATION RATE > 60 mL/min
[2017-08-16 09:58] LABS: INFLUENZA A NEGATIVE (NEGATIVE); INFLUENZA B NEGATIVE (NEGATIVE)
[2017-08-16 09:59] LABS: GLUCOSE,RANDOM 149 mg/dL (74-109); TOTAL PROTEIN 7.1 g/dL (6.6-8.7)
[2017-08-16 10:00] LABS: ALKALINE PHOSPHATASE 112 U/L (35-104); ALT/SGPT 11 U/L (<33); AST/SGOT 12 U/L (10.0-35.0); BILIRUBIN,DIRECT 0.2 mg/dL (0-0.3); LIPASE 23 U/L (13-60)
[2017-08-16 10:01] LABS: ALBUMIN 4.2 g/dL (4.0-5.0)
[2017-08-16] MEDS ORDERED: CEFTRIAXONE SODIUM 1 GM in 0.9 % SODIUM CHLORIDE 100ML 100 ML IVPB ONE (11:36)
[2017-08-16] MEDS ORDERED: AZITHROMYCIN 500 MG TABLET PO ONE (11:36)
[2017-08-16] MEDS ORDERED: ONDANSETRON HCL IV 4 MG/2 ML VIAL IVP PRN (12:45)
[2017-08-16] MEDS ORDERED: TRIAZOLAM PO PRN (12:46)
[2017-08-16] MEDS ORDERED: HYOSCYAMINE SULFATE SL PRN (12:46)
[2017-08-16] MEDS ORDERED: HYOSCYAMINE SULFATE ODT 0.125 MG TAB.SUBL PO PRN (12:59)
[2017-08-16] MEDS ORDERED: HYOSCYAMINE SULFATE ODT 0.125 MG TAB.SUBL SL PRN (13:15)
[2017-08-16] MEDS ORDERED: CEFTRIAXONE SODIUM 1 GM in 0.9 % SODIUM CHLORIDE 100ML 100 ML IVPB SCH (14:26)
[2017-08-16] MEDS ORDERED: ACETAMINOPHEN 500 MG TABLET PO PRN (14:26)
[2017-08-16] MEDS ORDERED: IPRATROPIUM/ALBUTEROL (0.5MG/3MG) NEB INH SCH (14:26)
--- NOTE | 2017-08-16 15:23 | History & Physical ---
History of Present Illness - Date of Service Date of Service for History & Physical: 08/16/17 - History of Present Illness Admitting Diagnosis: LLL pneumonia. vomiting History of Present Illness: Mrs. Rodriguez is a 76 year-old female who presented to the ED this morning with c/o vomiting and headache. She states that she began vomiting last evening and she vomited several times. She denies diarrhea, but states she did have diarrhea 6 days ago and was seen in the ED at [facility], CT of abdomen was negative. She was given levsin SL last ED visit. 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 PSH includes appendectomy. In the ED, her BP was 164/90, HR 86, T 98.0F, RR 20, 89% O2 on room air. CBC demonstrated slightly elevated WBC count of 13, otherwise unremarkable. A head CT was ordered due to current headache and was negative. Abdominal xray ordered and showed infiltrates of her LLL. Based on diagnosis of pneumonia and pt's comorbidities of COPD and smoking, pt. was admitted to inpatient. Plan to receive IV abx, duo nebs, manage nausea, IV fluids. 08/16/17: Pt. is resting in bed. She c/o some nausea. She states that she has had a cough off and on over the past several days. She denies noticing fever at home. Plan to continue IV fluids, duo nebs, rocephin 1g q12h, azithromycin 500mg daily. Zofran 4mg q6h prn nausea. Will check TSH with labs on 08/17/17. Travel Screening - Travel/Exposure Within Last 30 Days Have you traveled within the last 30 days?: No - Travel/Exposure Within Last Year Have you traveled outside the [place] in the last year?: No - Additonal Travel Details Have you been exposed to anyone with a communicable illness?: No - Travel Symptoms Symptom Screening: None Review of Systems Constitutional: Reports: As per HPI. Denies: Chills, Fever, Malaise, Night sweats, Weakness, Weight change Eyes: Reports: As per HPI. Denies: Eye discharge, Eye pain, Photophobia, Vision change ENT: Reports: As per HPI. Denies: Congestion, Dental pain, Ear pain, Epistaxis , Hearing loss, Throat pain Respiratory: Reports: Cough. Denies: Dyspnea, Hemoptysis, Stridor, Wheezes Cardiovascular: Reports: As per HPI. Denies: Arrhythmia, Chest pain, Dyspnea on exertion, Edema, Murmurs, Orthopnea, Palpitations, Paroxysmal nocturnal dyspnea, Rheumatic Fever, Syncope Endocrine: Reports: As per HPI. Denies: Fatigue, Heat or cold intolerance, Polydipsia, Polyuria Gastrointestinal: Reports: As per HPI, Nausea, Vomiting. Denies: Abdominal pain , Constipation, Diarrhea, Hematemesis, Hematochezia, Melena Genitourinary: Reports: As per HPI. Denies: Abnormal menses, Discharge, Dyspareunia, Dysuria, Frequency, Hematuria, Incontinence, Retention, Urgency Musculoskeletal: Reports: As per HPI. Denies: Arthralgia, Back pain, Gout, Joint swelling, Myalgia, Neck pain Skin: Reports: As per HPI. Denies: Bruising, Change in color, Change in hair/ nails, Lesions, Pruritus, Rash Neurological: Reports: As per HPI. Denies: Abnormal gait, Confusion, Headache, Numbness, Paresthesias, Seizure, Tingling, Tremors, Vertigo, Weakness Psychiatric: Reports: As per HPI. Denies: Anxiety, Auditory hallucinations, Depression, Homicidal thoughts, Suicidal thoughts, Visual hallucinations Hematological/Lymphatic: Reports: As per HPI. Denies: Anemia, Blood Clots, Easy bleeding, Easy bruising, Swollen glands Past Medical History - SOCIAL HISTORY Smoking Status: Current every day smoker Alcohol Use: Rare Drug Use: None - RESPIRATORY Hx Respiratory Disorders: Yes Hx COPD: Yes - CARDIOVASCULAR Hx Cardio Disorders: No - NEURO Hx Neuro Disorders: Yes Hx CVA: Yes (2017) Hx Neuropathy: Yes - GI Hx GI Disorders: Yes Hx Reflux: Yes Hx of Polyps: Yes - Hx Genitourinary Disorders: No Comment:: Pt states kidney infections as child. None recently - ENDOCRINE Hx Endocrine Disorders: Yes Hx Thyroid Disease: Yes (Hyper) - MUSCULOSKELETAL Hx Musculoskeletal Disorders: Yes Hx Arthritis: Yes Hx Fibromyalgia: Yes Hx Osteoporosis: Yes - PSYCH Hx Psych Problems: Yes Hx Anxiety: Yes Hx Depression: Yes - HEMATOLOGY/ONCOLOGY Hx Hematology/Oncology Disorders: No Family Medical History Any Significant Family History?: No Family Hx Comment (NOT TO BE USED IN PLACE OF ITEMS BELOW): Unknown mimimal contact with family Hx Dementia: Mother Hx Heart Disease: Mother H&P Meds/Allergies - Allergies Allergies: Allergies Allergy/AdvReac Type Severity Reaction Status Date / Time nortriptyline HCl Allergy Unknown ALTERED Verified 08/11/17 17:54 [From [facility]] MENTAL STATUS - Home Medications Previous Rx's Medication Instructions Recorded Hyoscyamine Sulfate [Levsin-Sl] 0.25 mg SL Q8H PRN #20 tab.subl 08/11/17 - Active Medications Active Medications: Current Medications Acetaminophen (Tylenol 500mg Tab) 500 mg PO Q6H PRN PRN Reason: PAIN/TEMP Albuterol/Ipratropium (Duoneb) 3 ml INH RESP.Q4H.WA GABRIELE Amitriptyline HCl (Elavil) 100 mg PO QPM GABRIELE Azithromycin (Zithromax) 500 mg PO DAILY GABRIELE Duloxetine HCl (Cymbalta) 60 mg PO DAILY GABRIELE Enoxaparin Sodium (Lovenox) 40 mg SC DAILY GABRIELE Hyoscyamine (Levsin Odt) 0.25 mg SL Q8H PRN PRN Reason: abdominal pain Sodium Chloride () 1,000 mls @ 75 mls/hr IV .[id number] PRN PRN Reason: LARGE VOLUME IV Ceftriaxone Sodium 1 gm/ (Sodium Chloride) 100 mls @ 200 mls/hr IVPB Q12H GABRIELE Stop: 08/21/17 14:27 Last Admin: 08/16/17 14:37 Dose: Not Given Ondansetron HCl (Zofran) 4 mg IVP Q6H PRN PRN Reason: NAUSEA Last Admin: 08/16/17 14:18 Dose: 4 mg Pantoprazole Sodium (Protonix) 80 mg PO DAILYAC GBARIELE Pregabalin (Lyrica) 200 mg PO BID GABRIELE Pregabalin (Lyrica) 25 mg PO BID GABRIELE Trazodone HCl (Desyrel) 50 mg PO QHS GABRIELE Physical Exam - Vital Signs Vital Signs: Vital Signs - Last 24 Hrs Temp Pulse Pulse Resp BP BP Pulse Ox 08/16/17 14:27 98 H 16 148/74 94 L 08/16/17 14:25 97.7 F 87 16 149/65 94 L - General General Appearance: Alert, Oriented x3, Cooperative, Mild distress - Head Head exam: Normal inspection - Eye Eye exam: Normal appearance, PERRL Pupils: Normal accommodation - ENT ENT exam: Normal exam, Mucous membranes moist, Normal external ear exam, Normal orophraynx, TM's normal bilaterally Ear exam: Normal external inspection. negative: External canal tenderness Nasal Exam: Normal inspection. negative: Discharge, Sinus tenderness Mouth exam: Normal external inspection, Tongue normal Teeth exam: Normal inspection. negative: Dental caries Throat exam: Normal inspection. negative: Tonsillar erythema, Tonsillar exudate - Neck Neck exam: Normal inspection, Full ROM. negative: Tenderness - Respiratory Respiratory exam: Decreased breath sounds, Wheezes (expiratory). negative: Respiratory distress - Cardiovascular Cardiovascular Exam: Regular rate, Normal rhythm, Normal heart sounds - GI/Abdominal GI/Abdominal exam: Soft, Normal bowel sounds. negative: Tenderness - Rectal Rectal exam: Deferred - exam: Deferred - Extremities Extremities exam: Normal inspection, Full ROM, Normal capillary refill. negative: Tenderness - Back Back exam: Reports: Normal inspection, Full ROM. Denies: Muscle spasm, Rash noted, Tenderness - Neurological Neurological exam: Alert, Normal gait, Oriented X3, Reflexes normal - Psychiatric Psychiatric exam: Normal affect, Normal mood - Skin Skin exam: Dry, Intact, Normal color, Warm Results - Labs Result Diagrams: 08/16/17 09:25 08/16/17 09:25 - Imaging and Cardiology Abdominal x-ray Status: Image reviewed (LLL infiltrates) CT scan - head Status: Image reviewed (No acute process ) VTE H&P Assessment - Risk for VTE Risk for VTE: Yes Risk Level: Low Risk Assessment Date: 08/16/17 Risk Assessment Time: 15:30 VTE Orders Placed or Will Be Placed: Yes Plan - Inpatient Certification Inpatient Certification: Admit to inpatient care: Based on my medical assessment, after consideration of patient's risk factors (age, co-morbidities and patient presenting symptoms and acuity), I expect that this patient will remain in the hospital greater than or equal to two midnights and that the services needed warrant inpatient care because: Patient Risk Factors: [] Estimated length of stay: [] The patient may reasonably be expected to be discharged or transferred to a hospital within 96 hours after admission to [facility]. Services needed: [] Post hospital care (if known): [] I certify that my determination is in accordance with my understanding of Medicare requirements for reasonable and necessary inpatient services. - Detailed Diagnosis and Plan (1) Pneumonia Current Visit: Yes Status: Acute Qualifiers: Pneumonia type: due to unspecified organism Laterality: left Lung location: lower lobe of lung Qualified Code(s): J18.1 - Lobar pneumonia, unspecified organism Base Code: J18.9 - PNEUMONIA, UNSPECIFIED ORGANISM Comment: 08/16/17: LLL infiltrates identified on abdominal xay. Rocephin 1g q12h and azithromycin 500mg daily. Duo nebs q4h while awake. Will continue to monitor vital signs and CBC/CMP. (2) Nausea Current Visit: Yes Status: Acute Base Code: R11.0 - NAUSEA Comment: : Zofran 4mg q6h prn nausea. Continuing IV fluids. (3) At risk for deep venous thrombosis Current Visit: Yes Status: Acute Base Code: Z91.89 - OTH PERSONAL RISK FACTORS, NOT ELSEWHERE CLASSIFIED Comment: 08/16/17: Lovenox 40mg SC daily (4) Full code status Current Visit: Yes Status: Acute Base Code: Z78.9 - OTHER SPECIFIED HEALTH STATUS Comment: 08/16/17: Pt. is full code status
[2017-08-16] MEDS: 0.9 % SODIUM CHLORIDE 1000ML 1,000 ML IV PRN (15:51)
[2017-08-16] MEDS ORDERED: AMITRIPTYLINE HCL 100 MG PO SCH (17:00)
[2017-08-16] MEDS ORDERED: AMITRIPTYLINE 25 MG TABLET PO SCH (17:00)
[2017-08-16] MEDS ORDERED: IPRATROPIUM/ALBUTEROL (0.5MG/3MG) NEB INH PRN (17:59)
[2017-08-16] MEDS: ONDANSETRON HCL IV 4 MG/2 ML VIAL IVP PRN ×2 (18:11→22:17)
[2017-08-16] MEDS: PREGABALIN (LYRICA) 100MG CAPSULE PO SCH (21:24)
[2017-08-16] MEDS: PREGABALIN 25 MG CAPSULE PO SCH (21:25)
[2017-08-16] MEDS: TRAZODONE 50 MG TABLET PO SCH (21:25)
[2017-08-16] MEDS ORDERED: PREGABALIN 225 MG PO SCH (22:00)
[2017-08-16] MEDS: HYDROCODONE/APAP 5/325MG TABLET PO PRN (22:17)
[2017-08-17] MEDS ORDERED: CEFTRIAXONE SODIUM 1 GM in 0.9 % SODIUM CHLORIDE 100ML 100 ML IVPB SCH ×2
[2017-08-17] MEDS: PANTOPRAZOLE SODIUM 40 MG TABLET PO SCH (06:18)
[2017-08-17] MEDS: 0.9 % SODIUM CHLORIDE 1000ML 1,000 ML IV PRN (06:25)
[2017-08-17 07:14] LABS: BASO % 0.2 % (0-6); EOS % 0.6 % (0-6); GRAN % 56.9 % (47-80); HEMATOCRIT 38.4 % (35.0-47.0); HEMOGLOBIN 12.2 gm/dl (11.6-16.0); LYMPH % 31.3 % (16-45); MEAN CELL VOLUME 90.6 fl (81-97); MEAN CORPUSCULAR HEMOGLOBIN 28.8 pg (27-33); MEAN CORPUSCULAR HGB CONC 31.8 g/dl (32-36); MEAN PLATELET VOLUME 8.6 fl (7.4-10.4); PLATELET COUNT 308 K/uL (130-400); RED BLOOD COUNT 4.24 M/uL (3.80-5.40); RED CELL DISTRIBUTION WIDTH 15.5 % (11.5-14.5); WHITE BLOOD COUNT W/O DIFF 9.5 K/uL (4.2-12.2)
[2017-08-17 07:28] LABS: ALB/GLOB RATIO 1.4 (1.1-1.8); ALBUMIN 3.4 g/dL (4.0-5.0); ALKALINE PHOSPHATASE 88 U/L (35-104); ALT/SGPT 8 U/L (<33); AST/SGOT 11 U/L (10.0-35.0); BLOOD UREA NITROGEN 13 mg/dL (8-23); CREATININE 0.8 mg/dL (0.5-0.9); EST GLOMERULAR FILTRATION RATE > 60 mL/min; GLUCOSE,RANDOM 96 mg/dL (74-109); TOTAL PROTEIN 5.8 g/dL (6.6-8.7)
[2017-08-17] MEDS: HYDROCODONE/APAP 5/325MG TABLET PO PRN (08:22)
[2017-08-17] MEDS: UMECLIDINIUM BROMIDE (INCRUSE) 62.5MCG IH SCH (09:59)
[2017-08-17] MEDS ORDERED: OMEPRAZOLE 40 MG PO SCH (10:00)
[2017-08-17] MEDS ORDERED: Non-Formulary MISC (Duloxetine Hcl [Cymbalta] 60 MG) PO SCH (10:00)
[2017-08-17] MEDS: ENOXAPARIN 40 MG/0.4 ML SYR SC SCH (11:45)
[2017-08-17] MEDS: PREGABALIN 25 MG CAPSULE PO SCH ×2 (11:45→21:15)
[2017-08-17] MEDS: PREGABALIN (LYRICA) 100MG CAPSULE PO SCH ×2 (11:48→21:15)
[2017-08-17] MEDS: DULOXETINE HCL 30 MG CAPSULE.DR PO SCH (11:49)
[2017-08-17] MEDS: CEFDINIR 300 MG CAPSULE PO SCH ×2 (11:53→21:16)
[2017-08-17] MEDS: AZITHROMYCIN 500 MG TABLET PO SCH (11:55)
--- NOTE | 2017-08-17 12:29 | Discharge Summary ---
Providers Discharge Summary Date: 08/18/17 Date of admission: 08/16/17 14:08 Expected Date of Discharge: 08/18/17 Attending physician: ROLAND LANDEROS Primary care physician: CHAY SARMIENTO Physical Exam - Vital Signs Vital Signs: Vital Signs - Last 24 Hrs Temp Pulse Pulse Resp BP BP Pulse Ox 08/17/17 10:00 70 16 91 L 08/17/17 09:00 63 20 08/17/17 08:23 97.7 F 63 20 143/67 95 08/17/17 06:00 97.7 F 61 16 146/71 95 08/16/17 22:00 67 16 124/62 94 L 08/16/17 21:44 63 16 94 L 08/16/17 21:00 64 20 08/16/17 18:00 97.4 F L 64 20 119/60 97 08/16/17 15:16 87 16 08/16/17 14:27 98 H 16 148/74 94 L 08/16/17 14:25 97.7 F 87 16 149/65 94 L - General General Appearance: Alert, Oriented x3, Cooperative, No acute distress - Head Head exam: Normal inspection - Eye Eye exam: Normal appearance, PERRL Pupils: Normal accommodation - ENT ENT exam: Normal exam, Mucous membranes moist, Normal external ear exam, Normal orophraynx, TM's normal bilaterally Ear exam: Normal external inspection. negative: External canal tenderness Nasal Exam: Normal inspection. negative: Discharge, Sinus tenderness Mouth exam: Normal external inspection, Tongue normal Teeth exam: Normal inspection. negative: Dental caries Throat exam: Normal inspection. negative: Tonsillar erythema, Tonsillar exudate - Neck Neck exam: Normal inspection, Full ROM. negative: Tenderness - Respiratory Respiratory exam: Decreased breath sounds, Other (On 2L oxygen nc). negative: Respiratory distress - Cardiovascular Cardiovascular Exam: Regular rate, Normal rhythm, Normal heart sounds - GI/Abdominal GI/Abdominal exam: Soft, Normal bowel sounds. negative: Tenderness - Rectal Rectal exam: Deferred - exam: Deferred - Extremities Extremities exam: Normal inspection, Full ROM, Normal capillary refill. negative: Tenderness - Back Back exam: Reports: Normal inspection, Full ROM. Denies: Muscle spasm, Rash noted, Tenderness - Neurological Neurological exam: Alert, Normal gait, Oriented X3, Reflexes normal - Psychiatric Psychiatric exam: Normal affect, Normal mood - Skin Skin exam: Dry, Intact, Normal color, Warm Hospitalization - Hospitalization Admission Diagnosis: LLL pneumonia. vomiting - Problem List/Discharge Diagnosis (1) Pneumonia Current Visit: Yes Status: Acute Discharge Diagnosis: Pneumonia type: due to unspecified organism Laterality: left Lung location: lower lobe of lung Qualified Code(s): J18.1 - Lobar pneumonia, unspecified organism Base Code: J18.9 - PNEUMONIA, UNSPECIFIED ORGANISM Comment: 08/18/17: LLL infiltrates identified on abdominal xay. CBC/CMP unchanged, vss, pt. has remained afebrile. IV antibiotics changed to PO. Home O2 qualifier done afternoon of 08/17/17 and pt. does qualify- 2L at rest and 6L during ambulation. Plan to d/c home this morning. (2) Nausea Current Visit: Yes Status: Acute Base Code: R11.0 - NAUSEA Comment: : Nausea now resolved (3) At risk for deep venous thrombosis Current Visit: Yes Status: Acute Base Code: Z91.89 - OTH PERSONAL RISK FACTORS, NOT ELSEWHERE CLASSIFIED Comment: 08/18/17: Lovenox 40mg SC daily during admission, will not plan to d/c with anticoagulant because pt. will increase activity to baseline (4) Full code status Current Visit: Yes Status: Acute Base Code: Z78.9 - OTHER SPECIFIED HEALTH STATUS Comment: 08/18/17: Pt. remains full code status - Hospitalization Course Disposition: Home Health Service Hospital Course: Mrs. Rodriguez is a 76 year-old female who presented to the ED this morning with c/o vomiting and headache. She states that she began vomiting last evening and she vomited several times. She denies diarrhea, but states she did have diarrhea 6 days ago and was seen in the ED at [facility], CT of abdomen was negative. She was given levsin SL last ED visit. 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 PSH includes appendectomy. In the ED, her BP was 164/90, HR 86, T 98.0F, RR 20, 89% O2 on room air. CBC demonstrated slightly elevated WBC count of 13, otherwise unremarkable. A head CT was ordered due to current headache and was negative. Abdominal xray ordered and showed infiltrates of her LLL. Based on diagnosis of pneumonia and pt's comorbidities of COPD and smoking, pt. was admitted to inpatient. Plan to receive IV abx, duo nebs, manage nausea, IV fluids. 08/16/17: Pt. is resting in bed. She c/o some nausea. She states that she has had a cough off and on over the past several days. She denies noticing fever at home. Plan to continue IV fluids, duo nebs, rocephin 1g q12h, azithromycin 500mg daily. Zofran 4mg q6h prn nausea. Will check TSH with labs on 08/17/17. 08/17/17 1225: Pt. is up in bed eating her lunch. She states she feels much better today and she denies nausea. IV antibiotics were changed to PO this morning and pt is tolerating them well. CBC and CMP stable, TSH 0.69. Pt. has remained btw 91-95% oxygen saturation on 2L nc, will do home oxygen qualifier prior to discharge. Her saturation dropped to 85% on room air while sitting in bed. Pt. would benefit with home oxygen at 2L based on her history of COPD, current pneumonia treatment, and oxygen dependance during current admission. When qualifier was performed, pt. became nauseated with ambulation (was shortly after she ate lunch). No bm since 08/15- bowel cocktail administered. 08/18/17 0925: Pt. reports symptom of nausea resolved today. She is sitting up in bed in no acute distress. She has still not had a bm, but she states that it is normal for her to not have a bm when she is away from home, and she is confident that she will as soon as she is back in her own home. She denies abdominal pain/cramping. She does qualify for home O2, 2L at rest and 6L while ambulating. Plan to d/c home this morning with home oxygen and visiting nurse, f/u with PCP scheduled in 5-7 days. Abnormal Labs: Abnormal Lab Results 08/17/17 08/17/17 Range/Units 07:06 07:06 MCHC 31.8 L (32-36) g/dl RDW 15.5 H (11.5-14.5) % Monocytes % 11.0 H (0-9) % Calcium 8.1 L (8.8-10.2) mg/dL Total Protein 5.8 L (6.6-8.7) g/dL Albumin 3.4 L (4.0-5.0) g/dL Condition at Discharge: (2) Stable Discharge Diagnosis: LLL Pneumonia VTE Discharge VTE Reason For No Overlap Therapy: Not Indicated (Mobility not impaired) Discharge Medications - Discharge Medications Prescriptions: Azithromycin [Zithromax] 500 mg PO DAILY 2 Days #2 tab Cefdinir 300 mg PO BID #5 capsule Home Medications: Ambulatory Orders Duloxetine HCl [Cymbalta] 60 mg PO DAILY 10/22/14 [Last Taken 08/15/17] Omeprazole [Prilosec] 40 mg PO DAILY 10/22/14 [Last Taken 08/15/17] Pregabalin [Lyrica] 225 mg PO BID 10/22/14 [Last Taken 08/15/17] Tiotropium [place] [Spiriva] 18 mcg IH DAILY 10/22/14 [Last Taken 08/15/17] Triazolam 1 - 2 tab PO QHS PRN 10/22/14 [Last Taken 08/15/17] Cholecalciferol (Vitamin D3) [Vitamin D3] 50,000 unit PO WEEKLY 11/23/15 [Last Taken 08/15/17] Naproxen [Naprosyn] 500 mg PO BID 11/23/15 [Last Taken 08/15/17] Amitriptyline HCl 100 mg PO QPM 06/26/16 [Last Taken 08/15/17] Hydrocodone/Acetaminophen [[place] 5mg/325mg] 1 tab PO Q6H PRN 06/26/16 [Last Taken 08/15/17] Multivitamin [Daily Multiple Vitamin] 1 each PO DAILY 06/26/16 [Last Taken 08/15] Hyoscyamine Sulfate [Levsin-Sl] 0.25 mg SL Q8H PRN #20 tab.subl 08/11/17 [Last Taken 08/15/17] Azithromycin [Zithromax] 500 mg PO DAILY 2 Days #2 tab 08/18/17 [Last Taken Unknown] Cefdinir 300 mg PO BID #5 capsule 08/18/17 [Last Taken Unknown] Discharge Plan - Discharge Instructions Activity at Discharge: Increase Activity as Tolerated Diet at Discharge: Advance to Usual Diet Additional Instructions: Continue Cefdinir 300mg twice daily- first home dose tonight Continue Azithromycin 500mg daily- first home dose tomorrow Wear your oxygen at all times- 2 liters while resting and sleeping, 6 liters while ambulating -Do not smoke cigarettes near oxygen, it is a fire risk Follow up with your PCP within 5-7 days Return to the ED if you experience any worsening symptoms, including shortness of breath, fever, nausea/vomiting, or any chest pain Quality Measures - Quality Measures Quality Measures: Advance Directives, Documentation of Current Medications in Medical Record, Elder Maltreatment Screen and Follow-Up Plan, Screening for High Blood Pressure and F/U Documented - Current Medications Quality Measure: Measure #130: Documentation of Current Medications Documentation of Current Medications: <Current Medications Documented/Reviewed> [G8427] - Blood Pressure Screening Quality Measure: Screening for High Blood Pressure and Follow-Up Documented Does Patient Have Any of the Following: No Blood Pressure Classification: Hypertensive Reading Systolic Measurement: 148 Diastolic Measurement: 74 Screening for High Blood Pressure: < Pre-Hypertensive BP, F/U Documented > [ G8950] Pre-Hypertensive Follow-up Interventions: Referral to alternative/primary care provider. - Advance Directives Quality Measure: Measure #47: Care Plan Advance Directives Established: No Advance Directives Information Provided To Patient: No Advance Directives on File: No Living Will: No Power of Sales Estimator: Yes Power of Sales Estimator Name: MASSIMO RODRIGUEZ Advance Care Planning: <Care Plan/Decision Maker Documented; Discussed & Documented> [1123F] - Elder Abuse Suspicion Index Screening: Elder Abuse Suspicion Index Screening Rely on people for bathing, dressing, shopping, banking, etc: No Prevented from getting food, clothes, medication, etc: No Made to feel shamed or threatened by someone: No Forced to sign papers or use money against will: No Feel afraid, touched in ways not wanted or hurt physically: No Poor eye contact, withdrawn, malnourished, cuts or bruises: No Screening Result: Negative result EASI Reference Information: Martha ABRAHAM, Everton Mckinney, Queta Calix, Fernando Summers.Development and validation of a tool to assist physicians identification of elder abuse: The Elder Abuse Suspicion Index (EASI ). Journal of Elder Abuse and Neglect, 2008; 20 (3): 276-300. - Elder Maltreatment Screen Quality Measures: Elder Maltreatment Screen and Follow-Up Plan Elder Maltreatment Screen: <Negative, No Follow-Up Plan Required> [G2655]
--- NOTE | 2017-08-17 13:04 | Physician Progress Note ---
Subjective - Date Date of Physician Progress Note: 08/17/17 - Subjective Subjective Comment: Pt. has remained btw 91-95% oxygen saturation on 2L nc, will do home oxygen qualifier today. Her saturation dropped to 85% on room air while sitting in bed. Pt. would benefit with home oxygen at 2L based on her history of COPD, current pneumonia treatment, and oxygen dependance during current admission. Home oxygen qualifier result: Pt. required 6 liters of oxygen during ambulation to keep sats above 91%, 2 liters at rest. Pt. did experience nausea with ambulation, she again complains of upper abdominal pain. She has not had a bowel movement since 08/15 and moderate stool was seen on abd CT in right colon. Will pre-treat with zofran and start stool cocktail (prune juice, mirilax). Tentatively plan to d/c home tomorrow morning. Location: Abdomen Radiation: Back Quality: Constant Improves with: Other (rest) Worsens with: Movement Associated symptoms: Other (nausea) Objective - Vital Signs Vital Signs: Vital Signs - Last 24 Hrs Temp Pulse Pulse Resp BP BP Pulse Ox 08/17/17 10:00 70 16 91 L 08/17/17 09:00 63 20 08/17/17 08:23 97.7 F 63 20 143/67 95 08/17/17 06:00 97.7 F 61 16 146/71 95 08/16/17 22:00 67 16 124/62 94 L 08/16/17 21:44 63 16 94 L 08/16/17 21:00 64 20 08/16/17 18:00 97.4 F L 64 20 119/60 97 08/16/17 15:16 87 16 08/16/17 14:27 98 H 16 148/74 94 L 08/16/17 14:25 97.7 F 87 16 149/65 94 L - General General Appearance: Alert, Oriented x3, Cooperative, No acute distress - Head Head exam: Normal inspection - Eye Eye exam: Normal appearance, PERRL Pupils: Normal accommodation - ENT ENT exam: Normal exam, Mucous membranes moist, Normal external ear exam, Normal orophraynx, TM's normal bilaterally Ear exam: Normal external inspection. negative: External canal tenderness Nasal Exam: Normal inspection. negative: Discharge, Sinus tenderness Mouth exam: Normal external inspection, Tongue normal Teeth exam: Normal inspection. negative: Dental caries Throat exam: Normal inspection. negative: Tonsillar erythema, Tonsillar exudate - Neck Neck exam: Normal inspection, Full ROM. negative: Tenderness - Respiratory Respiratory exam: Decreased breath sounds. negative: Respiratory distress - Cardiovascular Cardiovascular Exam: Regular rate, Normal rhythm, Normal heart sounds - GI/Abdominal GI/Abdominal exam: Soft, Normal bowel sounds. negative: Tenderness - Rectal Rectal exam: Deferred - exam: Deferred - Extremities Extremities exam: Normal inspection, Full ROM, Normal capillary refill. negative: Tenderness - Back Back exam: Reports: Normal inspection, Full ROM. Denies: Muscle spasm, Rash noted, Tenderness - Neurological Neurological exam: Alert, Normal gait, Oriented X3, Reflexes normal - Psychiatric Psychiatric exam: Normal affect, Normal mood - Skin Skin exam: Dry, Intact, Normal color, Warm Assessment and Plan - Assessment and Plan (1) Pneumonia Current Visit: Yes Status: Acute Qualifiers: Pneumonia type: due to unspecified organism Laterality: left Lung location: lower lobe of lung Qualified Code(s): J18.1 - Lobar pneumonia, unspecified organism Base Code: J18.9 - PNEUMONIA, UNSPECIFIED ORGANISM Comment: 08/17/17: LLL infiltrates identified on abdominal xay. CBC/CMP unchanged, vss, pt. has remained afebrile. IV antibiotics changed to PO. Plan to do home oxygen qualifier today and d/c home. (2) Nausea Current Visit: Yes Status: Acute Base Code: R11.0 - NAUSEA Comment: : Nausea now resolved (3) At risk for deep venous thrombosis Current Visit: Yes Status: Acute Base Code: Z91.89 - [facility] PERSONAL RISK FACTORS, NOT ELSEWHERE CLASSIFIED Comment: 08/17/17: Lovenox 40mg SC daily during admission, will not plan to d/c with anticoagulant because pt. will increase activity to baseline (4) Full code status Current Visit: Yes Status: Acute Base Code: Z78.9 - OTHER SPECIFIED HEALTH STATUS Comment: 08/17/17: Pt. remains full code status - Disposition Disposition: Pt. has remained btw 91-95% oxygen saturation on 2L nc, will do home oxygen qualifier today. Her saturation dropped to 85% on room air while sitting in bed. Pt. would benefit with home oxygen at 2L based on her history of COPD, current pneumonia treatment, and oxygen dependance during current admission. Home oxygen qualifier result: Pt. required 6 liters of oxygen during ambulation to keep sats above 91%, 2 liters at rest. Pt. did experience nausea with ambulation, she again complains of upper abdominal pain. She has not had a bowel movement since 08/15 and moderate stool was seen on abd CT in right colon. Will pre-treat with zofran and start stool cocktail (prune juice, mirilax). Tentatively plan to d/c home tomorrow morning. Results - Labs Result Diagrams: 08/17/17 07:06 08/17/17 07:06 Labs Last 24 Hours: Laboratory Results - last 24 hr 08/17/17 08/17/17 08/17/17 07:06 07:06 07:06 WBC 9.5 RBC 4.24 Hgb 12.2 Hct 38.4 MCV 90.6 MCH 28.8 MCHC 31.8 L RDW 15.5 H Plt Count 308 MPV 8.6 Gran % 56.9 Lymphocytes % 31.3 Monocytes % 11.0 H Eosinophils % 0.6 Basophils % 0.2 Sodium 140 Potassium 4.1 Chloride 104 Carbon Dioxide 29.0 Anion Gap 7.0 BUN 13 Creatinine 0.8 Estimated GFR > 60 Random Glucose 96 Calcium 8.1 L Total Bilirubin 0.20 AST 11 ALT 8 Alkaline Phosphatase 88 Total Protein 5.8 L Albumin 3.4 L Globulin 2.4 Albumin/Globulin Ratio 1.4 TSH 0.69 DVT/PE Assessment - Risk for VTE Risk for VTE: No Risk Level: Low Risk Assessment Date: 08/16/17 Risk Assessment Time: 15:30 VTE Orders Placed or Will Be Placed: Yes - Active Medicaitons Current Medications: Current Medications Acetaminophen (Tylenol 500mg Tab) 500 mg PO Q6H PRN PRN Reason: PAIN/TEMP Last Admin: 08/16/17 17:03 Dose: 500 mg Hydrocodone Bitart/Acetaminophen ([place] 5mg/325mg) 1 each PO Q12H PRN PRN Reason: Pain - Moderate (5-7) Last Admin: 08/17/17 08:22 Dose: 1 each Albuterol/Ipratropium (Duoneb) 3 ml INH RESP.Q4H PRN PRN Reason: Wheezing Amitriptyline HCl (Elavil) 100 mg PO QPM GABRIELE Last Admin: 08/16/17 17:03 Dose: 100 mg Azithromycin (Zithromax) 500 mg PO DAILY [facility] Last Admin: 08/17/17 11:55 Dose: 500 mg Cefdinir (Cefdinir) 300 mg PO BID [facility] Stop: 08/20/17 22:01 Last Admin: 08/17/17 11:53 Dose: 300 mg Duloxetine HCl (Cymbalta) 60 mg PO DAILY [facility] Last Admin: 08/17/17 11:49 Dose: 60 mg Enoxaparin Sodium (Lovenox) 40 mg SC DAILY [facility] Last Admin: 08/17/17 11:45 Dose: 40 mg Hyoscyamine (Levsin Odt) 0.25 mg SL Q8H PRN PRN Reason: abdominal pain Sodium Chloride () 1,000 mls @ 75 mls/hr IV .[id number] PRN PRN Reason: LARGE VOLUME IV Last Admin: 08/17/17 06:25 Dose: 75 mls/hr Ondansetron HCl (Zofran) 4 mg IVP Q4H PRN PRN Reason: NAUSEA Last Admin: 08/16/17 22:17 Dose: 4 mg [facility] Admin: 08/17/17 06:18 Dose: 80 mg Pregabalin (Lyrica) 200 mg PO BID [facility] Last Admin: 08/17/17 11:48 Dose: 200 mg Pregabalin (Lyrica) 25 mg PO BID [facility] Last Admin: 08/17/17 11:45 Dose: 25 mg Trazodone HCl (Desyrel) 50 mg PO QHS [facility] Last Admin: 08/16/17 21:25 Dose: 50 mg AMI Plan - Labs Result Diagrams: 08/17/17 07:06 08/17/17 07:06
[2017-08-17] MEDS ORDERED: MAGNESIUM HYDROXIDE 30 ML UDC PO ONE (13:05)
[2017-08-17] MEDS ORDERED: POLYETHYLENE GLY 17 GM PACKET PO ONE (13:14)
[2017-08-17] MEDS: ONDANSETRON HCL IV 4 MG/2 ML VIAL IVP PRN (13:41)
[2017-08-17] MEDS: TRAZODONE 50 MG TABLET PO SCH (21:16)
[2017-08-17] MEDS ORDERED: AMITRIPTYLINE 25 MG TABLET PO SCH (22:00)
--- NOTE | 2017-08-17 22:21 | RADIOLOGY REPORT ---
EXAM: ABDOMEN, ACUTE SERIES HISTORY: PATIENT HAS NAUSEA AND VOMITING. TECHNIQUE: AP view of the chest and multiple views of the abdomen are provided along with a comparison CT scan of the abdomen and pelvis dated 08/11/2017. FINDINGS: Ap view of the chest demonstrates left lower lobe passive atelectasis and/or infiltrate, which appears new with respect to the prior examination. Mildly elevated left hemidiaphragm is again noted. The cardiac silhouette is magnified. Tortuosity and ectasia of the thoracic aorta is again noted. A loop recorder is identified within the left anterior chest wall. The bowel gas pattern is nonspecific and nonobstructive. There is no radiographic evidence of free intraperitoneal air. A sclerotic density within the left sacrum is unchanged with respect to the prior CT scan. IMPRESSION: 1. LEFT LOWER LOBE PASSIVE ATELECTASIS AND/OR INFILTRATE IS NOW IDENTIFIED, DISCUSSED ABOVE. FOLLOW-UP PA AND LATERAL VIEW OF THE CHEST CAN BE OBTAINED UNTIL RESOLUTION OF FINDINGS. 2. NONSPECIFIC AND NONOBSTRUCTIVE BOWEL GAS PATTERN. JOB NUMBER: [id number] [facility]
--- NOTE | 2017-08-17 22:25 | CT SCAN REPORT ---
EXAM: CT SCAN HEAD WO CONTRAST HISTORY: PATIENT HAS HEADACHE. TECHNIQUE: Serial axial CT scan of the head was performed at 2.5 mm intervals from the base of the skull to the apex without the use of intravenous contrast. Comparison CT scan of the head dated 08/12/2012 is provided. FINDINGS: Moderate generalized parenchymal volume loss appears similar to the prior examination. There is no mass or mass effect. There is no CT evidence of intra or extraaxial fluid collection to suggest bleeding. Moderate periventricular and subcortical white matter chronic small vessel ischemic changes are identified. Bone windows demonstrate no CT evidence of a fracture or dislocation of the skull. Paranasal sinuses are unremarkable. IMPRESSION: STABLE CT APPEARANCE OF THE BRAIN WITH RESPECT TO THE PRIOR EXAMINATION. JOB [facility]BER: [id number] [facility]
[2017-08-18] MEDS: UMECLIDINIUM BROMIDE (INCRUSE) 62.5MCG IH SCH (06:12)
[2017-08-18] MEDS: PANTOPRAZOLE SODIUM 40 MG TABLET PO SCH (06:13)
[2017-08-18 06:46] LABS: BASO % 0.4 % (0-6); EOS % 1.1 % (0-6); GRAN % 51.5 % (47-80); HEMATOCRIT 37.9 % (35.0-47.0); LYMPH % 36.1 % (16-45); MEAN CELL VOLUME 91.3 fl (81-97); MEAN CORPUSCULAR HEMOGLOBIN 28.9 pg (27-33); MEAN CORPUSCULAR HGB CONC 31.7 g/dl (32-36); MEAN PLATELET VOLUME 9.1 fl (7.4-10.4); MONO % 10.9 % (0-9); PLATELET COUNT 296 K/uL (130-400); RED BLOOD COUNT 4.15 M/uL (3.80-5.40); RED CELL DISTRIBUTION WIDTH 15.4 % (11.5-14.5)
[2017-08-18 07:02] LABS: ALB/GLOB RATIO 1.4 (1.1-1.8); ALBUMIN 3.3 g/dL (4.0-5.0); ALKALINE PHOSPHATASE 84 U/L (35-104); ALT/SGPT 9 U/L (<33); AST/SGOT 10 U/L (10.0-35.0); BLOOD UREA NITROGEN 13 mg/dL (8-23); CREATININE 0.8 mg/dL (0.5-0.9); EST GLOMERULAR FILTRATION RATE > 60 mL/min; GLUCOSE,RANDOM 95 mg/dL (74-109); TOTAL PROTEIN 5.7 g/dL (6.6-8.7)
[2017-08-18] MEDS: PREGABALIN 25 MG CAPSULE PO SCH (09:30)
[2017-08-18] MEDS: CEFDINIR 300 MG CAPSULE PO SCH (09:30)
[2017-08-18] MEDS: PREGABALIN (LYRICA) 100MG CAPSULE PO SCH (09:30)
[2017-08-18] MEDS: DULOXETINE HCL 30 MG CAPSULE.DR PO SCH (09:31)
[2017-08-18] MEDS: AZITHROMYCIN 500 MG TABLET PO SCH (09:31)
[2017-08-18] MEDS: ENOXAPARIN 40 MG/0.4 ML SYR SC SCH (09:31)
== END 2017-08-18 14:18 | disposition home health service (06) | DRG 195 ==
LOC: ER 09:16 → MEDSURG 14:08
PROVIDERS: ADMIT Internal Medicine; ATTEND Internal Medicine
DX: J18.1 Lobar pneumonia, unspecified organism (principal); R51 Headache; J44.9 Chronic obstructive pulmonary disease, unspecified; Z86.73 Personal history of transient ischemic attack (TIA), and cerebral infarction without residual deficits; E05.90 Thyrotoxicosis, unspecified without thyrotoxic crisis or storm; M81.0 Age-related osteoporosis without current pathological fracture; M19.90 Unspecified osteoarthritis, unspecified site; M79.7 Fibromyalgia; F17.210 Nicotine dependence, cigarettes, uncomplicated; F41.8 Other specified anxiety disorders; G62.9 Polyneuropathy, unspecified; K21.9 Gastro-esophageal reflux disease without esophagitis
CPT/HCPCS: 99285 ×2; 96374; 83690; 85025; 80076; 80048; 87400; 74022; 70450; J2405; 80053; 84443; 94620; 94640; 94760; 94761; 99223; 99233; 99239; J1650; J7030

== ENCOUNTER 2017-12-12 07:53 | Emergency (ER) | payer MEDICARE ==
[2017-12-12] MEDS ORDERED: IPRATROPIUM/ALBUTEROL (0.5MG/3MG) NEB INH ONE ×3 (08:01→09:54)
[2017-12-12] MEDS ORDERED: METHYLPREDNISOLONE PF 125MG/VIAL IVP ONE (08:01)
--- NOTE | 2017-12-12 08:08 | Emergency Department Record ---
History of Present Illness - General Chief Complaint: Shortness of breath Stated Complaint: CONFUSION Time Seen by Provider: 12/12/17 07:59 Source: Patient, Family Mode of Arrival: Wheelchair Limitations: Altered mental status - History of Present Illness Initial Comments: 77 yo female presents with cough, wheezing, feeling tired and confused at times per the . She is a smoker that intermittently uses oxygen. Her breathing has worsened the last 2 days. This morning the reports she is confused, tired, and short of breath. She does continue to smoke. Her cough has been productive. He is unaware of any fevers. The states she is not willing to quite smoking. PMHx of COPD,CVA,Neuropathy, hyperthyroidism, fibro, OA, depression,Pneumonia PCP is Dr Valente GARCIA Complaint: Shortness of breath -: Days(s) (2) Severity: Moderate Quality: Other Consistency: Constant Improves With: Nothing, Bronchodilators, Oxygen Worsens With: Coughing Known History Of: COPD Context: Other Associated Symptoms: Cough Treatments Prior to Arrival: Other - Related Data Previous Rx's Medication Instructions Recorded Hyoscyamine Sulfate [Levsin-Sl] 0.25 mg SL Q8H PRN #15 tab.subl 09/09/17 Ondansetron [Zofran Odt] 4 mg PO Q8H PRN #15 tab.rapdis 09/09/17 Allergies Allergy/AdvReac Type Severity Reaction Status Date / Time nortriptyline HCl Allergy Unknown ALTERED Verified 08/11/17 17:54 [From [facility]] MENTAL STATUS Review of Systems Constitutional: Denies: Chills, Fever, Weakness Eyes: Denies: Eye discharge ENT: Reports: Congestion Respiratory: Reports: Cough, Dyspnea, Wheezes Cardiovascular: Denies: Chest pain, Palpitations, Syncope Endocrine: Reports: Fatigue Gastrointestinal: Denies: Abdominal pain, Diarrhea, Nausea, Vomiting Genitourinary: Denies: Dysuria, Urgency Musculoskeletal: Denies: Arthralgia, Back pain, Joint swelling, Myalgia Skin: Denies: Bruising, Change in color, Rash Neurological: Denies: Headache, Numbness, Tremors, Vertigo, Weakness Psychiatric: Denies: Anxiety Hematological/Lymphatic: Denies: Blood Clots, Easy bleeding, Easy bruising, Swollen glands Past Medical History - SOCIAL HISTORY Smoking Status: Current every day smoker - RESPIRATORY Hx Respiratory Disorders: Yes Hx COPD: Yes - CARDIOVASCULAR Hx Cardio Disorders: No - NEURO Hx Neuro Disorders: Yes Hx CVA: Yes (2017) Hx Neuropathy: Yes - GI Hx GI Disorders: Yes Hx Reflux: Yes Hx of Polyps: Yes - Hx Genitourinary Disorders: No Comment:: Pt states kidney infections as child. None recently - ENDOCRINE Hx Endocrine Disorders: Yes Hx Thyroid Disease: Yes (Hyper) - MUSCULOSKELETAL Hx Musculoskeletal Disorders: Yes Hx Arthritis: Yes Hx Fibromyalgia: Yes Hx Osteoporosis: Yes - PSYCH Hx Psych Problems: Yes Hx Anxiety: Yes Hx Depression: Yes - HEMATOLOGY/ONCOLOGY Hx Hematology/Oncology Disorders: No Family Medical History Family Hx Comment (NOT TO BE USED IN PLACE OF ITEMS BELOW): Unknown mimimal contact with family Hx Dementia: Mother Hx Heart Disease: Mother Physical Exam - General General Appearance: Alert, Oriented x3, Cooperative, Mild distress, Other ( Awake but somewhat sleepy, speaks but mild mumbling, she is oriented X 3) - Head Head exam: Atraumatic, Normocephalic, Normal inspection - Eye Eye exam: Normal appearance, PERRL. negative: Conjunctival injection, Scleral icterus - ENT ENT exam: Normal exam, Mucous membranes moist Ear exam: Normal external inspection Nasal Exam: Normal inspection Mouth exam: Normal external inspection - Neck Neck exam: Normal inspection, Full ROM. negative: Tenderness - Respiratory Respiratory exam: Accessory muscle use, Decreased breath sounds, Prolonged expiratory, Wheezes. negative: Normal lung sounds bilaterally - Cardiovascular Cardiovascular Exam: Regular rate, Normal rhythm, Normal heart sounds - GI/Abdominal GI/Abdominal exam: Soft. negative: Tenderness - Rectal Rectal exam: Deferred - exam: Deferred - Extremities Extremities exam: Normal inspection. negative: Pedal edema, Tenderness - Back Back exam: Denies: CVA tenderness (R), CVA tenderness (L) - Neurological Neurological exam: Abnormal gait, Alert, Oriented X3, Other (She is alert. She is aware of person, place, situation at this time). negative: Normal gait - Psychiatric Psychiatric exam: Depressed. negative: Agitated, Anxious - Skin Skin exam: Dry, Intact, Normal color, Warm Course - Reevaluation(s) Reevaluation #1: EMR reviewed. The patient was admitted 08/16/17 with LLL Pneumonia She is sleepy but awakens, answers questions, oriented X's 3. 12/12/17 08:14 12/12/17 08:19 Respiratory in for ABG. We discussed keeping saturations upper 80's to low 90's and not higher using minimum oxygen required She will be started on early BiPap while she is alert and understands/ cooperative confirms she is a full code 12/12/17 08:22 CBC reviewed. WBC is 13.4 12/12/17 08:31 ABG pH 7.34 PCO2 47 PO2 56 Saturation 88 CO 4.3 on 2LNC 12/12/17 08:33 The Troponin is normal The BNP is 1198 CMP No acute changes with normal renal function 12/12/17 08:43 The CXR demonstrated bilateral infiltrates with small pleural effusions 12/12/17 08:50 EKG #1: 0811 Rate: 80 Rhythm: NSR [place]: Left Intervals: Normal ST segments: Diffuse J point elevation without ST depression Prior: 06/26/16 12/12/17 08:52 On recheck the patient is tolerating Bipap with oxygen saturation upper 80's to low 90's. 12/12/17 09:02 Lactic Acid is normal at 1.1 I confirmed T[facility] does not have respiratory therapy tomorrow. She will need to be transferred to a hospital with 24/7 respiratory care. The recommends [facility] was contacted. 12/12/17 09:05 BiPap 12/6 Fio2 30% Tolerating very well. 12/12/17 09:08 12/12/17 09:22 The case was discussed with Dr De La Rosa of at [facility]. He accepts the transfer. 12/12/17 10:01 Bed assigned, EMS contacted. The patient continues to do very well on Bipap She is A and O X's 3. Coughs well. Stable for transfer. Medical Decision Making - Lab Data Result diagrams: 12/12/17 08:05 12/12/17 08:05 Disposition Disposition: Transfer Clinical Impression: COPD exacerbation, Hypoxia Pneumonia Qualifiers: Pneumonia type: due to unspecified organism Laterality: bilateral Lung location : unspecified part of lung Qualified Code(s): J18.9 - Pneumonia, unspecified organism Disposition: Acute Care Hospital Transfer Transfer To: [facility] Reason For Transfer: COPD Hypoxia, Bipap Accepting Physician: Estrella Time Discussed w/Accepting Physician: :22 Condition: (3) Guarded Forms: Patient Portal Access Time of Disposition: 08:59 Quality - Quality Measures Quality Measures: N/A - Blood Pressure Screening Does Patient Have Any of the Following: No Blood Pressure Classification: Pre-Hypertensive BP Reading Systolic Measurement: 105 Diastolic Measurement: 80 Screening for High Blood Pressure: < Pre-Hypertensive BP, F/U Documented > [ G8950] Pre-Hypertensive Follow-up Interventions: Referral to alternative/primary care provider.
[2017-12-12 08:14] LABS: BASO % 0.2 % (0-6); EOS % 1.1 % (0-6); GRAN % 70.7 % (47-80); HEMATOCRIT 38.8 % (35.0-47.0); HEMOGLOBIN 12.2 gm/dl (11.6-16.0); LYMPH % 16.6 % (16-45); MEAN CELL VOLUME 86.2 fl (81-97); MEAN CORPUSCULAR HEMOGLOBIN 27.1 pg (27-33); MEAN CORPUSCULAR HGB CONC 31.4 g/dl (32-36); MEAN PLATELET VOLUME 9.4 fl (7.4-10.4); MONO % 11.4 % (0-9); PLATELET COUNT 350 K/uL (130-400); RED CELL DISTRIBUTION WIDTH 17.6 % (11.5-14.5); WHITE BLOOD COUNT W/O DIFF 13.4 K/uL (4.2-12.2)
[2017-12-12] MEDS ORDERED: CEFTRIAXONE SODIUM 1 GM in 0.9 % SODIUM CHLORIDE 100ML 100 ML IVPB ONE (08:14)
[2017-12-12 08:23] LABS: BLOOD UREA NITROGEN 13 mg/dL (8-23); CREATININE 0.9 mg/dL (0.5-0.9); EST GLOMERULAR FILTRATION RATE > 60 mL/min
[2017-12-12 08:24] LABS: TOTAL PROTEIN 6.5 g/dL (6.6-8.7)
[2017-12-12 08:25] LABS: ARTERIAL BLD GAS O2 SATURATION 88.8 % (95-98); ARTERIAL BLOOD GAS BASE EXCESS -0.3 mmol/L (-2 - 3); ARTERIAL BLOOD GAS HCO3 25.1 mmol/L (18-23); ARTERIAL BLOOD GAS PCO2 47.4 mmHg (35-48); ARTERIAL BLOOD GAS pH 7.34 (7.35-7.45); CARBOXYHEMOGLOBIN 4.3 % (0-1.5); O2 HEMOGLOBIN 85.2 % vol (94-99); TOTAL HEMOGLOBIN 11.1 g/dl (11.6-16)
[2017-12-12 08:26] LABS: GLUCOSE,RANDOM 115 mg/dL (74-109)
[2017-12-12 08:27] LABS: ALLEN TEST PASS
[2017-12-12 08:28] LABS: ALT/SGPT 11 U/L (<33); AST/SGOT 14 U/L (10.0-35.0)
[2017-12-12 08:29] LABS: ALB/GLOB RATIO 1.2 (1.1-1.8); ALBUMIN 3.5 g/dL (4.0-5.0); ALKALINE PHOSPHATASE 122 U/L (35-104)
[2017-12-12] MEDS ORDERED: CEFEPIME HCL 2 GM in 0.9 % SODIUM CHLORIDE 100ML 100 ML IVPB ONE (08:58)
[2017-12-12] MEDS ORDERED: FUROSEMIDE IV 40MG/4ML VIAL IVP ONE (09:00)
[2017-12-12] MEDS ORDERED: CEFEPIME HCL 2 GM in 0.9% SODIUM CHLORIDE 50ML 50 ML IVPB ONE (09:15)
[2017-12-12] MEDS ORDERED: ACETAMINOPHEN 1,000 MG/100 ML BTL IVPB ONE (10:00)
--- NOTE | 2017-12-13 20:10 | RADIOLOGY REPORT ---
EXAM: CHEST 1 VIEW HISTORY: DIFFICULTY IN BREATHING. TECHNIQUE: Portable chest. COMPARISON: 06/26/2016. FINDINGS: Heart size is normal. Lungs are hyperinflated. Bilateral lower lobe infiltrate/pleural effusions. IMPRESSION: 1. HYPERINFLATED LUNGS. 2. BILATERAL LOWER LOBE INFILTRATE/PLEURAL EFFUSIONS. JOB NUMBER: [id number] MTDD
== END 2017-12-12 10:20 | disposition short-term general hospital (02) ==
LOC: ER 07:53
DX: J44.0 Chronic obstructive pulmonary disease with (acute) lower respiratory infection (principal); J18.9 Pneumonia, unspecified organism; J44.1 Chronic obstructive pulmonary disease with (acute) exacerbation; R09.02 Hypoxemia; R41.0 Disorientation, unspecified; Z87.01 Personal history of pneumonia (recurrent); Z99.81 Dependence on supplemental oxygen; Z86.73 Personal history of transient ischemic attack (TIA), and cerebral infarction without residual deficits; F17.210 Nicotine dependence, cigarettes, uncomplicated
CPT/HCPCS: 36600; 71045; 80053; 82375; 82803; 83605; 83880; 84484; 85025; 93005; 93010; 94640; 94660; 96374; 96375; 99285; J1940; J2930

== ENCOUNTER 2017-12-26 16:49 | Emergency (ER) | payer MEDICARE ==
[2017-12-26] MEDS ORDERED: METHYLPREDNISOLONE PF 125MG/VIAL IVP ONE (16:55)
[2017-12-26] MEDS ORDERED: CEFTRIAXONE SODIUM 1 GM in 0.9 % SODIUM CHLORIDE 100ML 100 ML IVPB ONE (17:02)
[2017-12-26] MEDS ORDERED: AZITHROMYCIN 500 MG TABLET PO ONE (17:02)
--- NOTE | 2017-12-26 17:04 | Emergency Department Record ---
History of Present Illness - General Chief Complaint: Difficulty Breathing Stated Complaint: SHANON Time Seen by Provider: 12/26/17 16:54 Source: Patient Mode of Arrival: Ambulatory Limitations: No limitations - History of Present Illness Initial Comments: 77 yo female presents with cough and shortness of breath the last 2-3 days. She has mild non discolored sputum. No fevers or chills. She states she uses 3 liters NC at home as needed. She usually uses the oxygen at least a few hours each day. She does continue to smoke about 1/2 pack per day. She has smoked her entire adult life. No chest pain. No edema. No NVD. MD Complaint: Cough, Shortness of breath -: Days(s) (3) Severity: Moderate Quality: Other Improves With: Bronchodilators Worsens With: Other (smoking) Context: Recent URI Associated Symptoms: Cough Treatments Prior to Arrival: None - Related Data Home Oxygen Amount: 3 Liters Previous Rx's Medication Instructions Recorded Hyoscyamine Sulfate [Levsin-Sl] 0.25 mg SL Q8H PRN #15 tab.subl 09/09/17 Ondansetron [Zofran Odt] 4 mg PO Q8H PRN #15 tab.rapdis 09/09/17 Azithromycin [Zithromax] 250 mg PO DAILY #4 tab 12/26/17 Prednisone [Prednisone 20Mg] 20 mg PO BID #10 tab 12/26/17 Allergies Allergy/AdvReac Type Severity Reaction Status Date / Time nortriptyline HCl Allergy Unknown ALTERED Verified 12/26/17 16:55 [From [facility]] MENTAL STATUS Review of Systems Constitutional: Denies: Chills, Fever, Malaise, Weakness Eyes: Denies: Eye discharge ENT: Denies: Congestion, Throat pain Respiratory: Reports: Cough, Dyspnea, Wheezes. Denies: Hemoptysis, Stridor Cardiovascular: Denies: Chest pain, Palpitations, Syncope Endocrine: Denies: Fatigue Gastrointestinal: Denies: Abdominal pain, Diarrhea, Nausea, Vomiting Genitourinary: Denies: Dysuria, Urgency Musculoskeletal: Denies: Arthralgia, Back pain, Myalgia Skin: Denies: Bruising, Change in color, Rash Neurological: Denies: Headache, Numbness, Weakness Psychiatric: Denies: Anxiety Hematological/Lymphatic: Denies: Easy bleeding, Easy bruising Past Medical History - SOCIAL HISTORY Smoking Status: Current every day smoker - RESPIRATORY Hx Respiratory Disorders: Yes Hx COPD: Yes - CARDIOVASCULAR Hx Cardio Disorders: No - NEURO Hx Neuro Disorders: Yes Hx CVA: Yes (2017) Hx Neuropathy: Yes - GI Hx GI Disorders: Yes Hx Reflux: Yes Hx of Polyps: Yes - Hx Genitourinary Disorders: No Comment:: Pt states kidney infections as child. None recently - ENDOCRINE Hx Endocrine Disorders: Yes Hx Thyroid Disease: Yes (Hyper) - MUSCULOSKELETAL Hx Musculoskeletal Disorders: Yes Hx Arthritis: Yes Hx Fibromyalgia: Yes Hx Osteoporosis: Yes - PSYCH Hx Psych Problems: Yes Hx Anxiety: Yes Hx Depression: Yes - HEMATOLOGY/ONCOLOGY Hx Hematology/Oncology Disorders: No Family Medical History Family Hx Comment (NOT TO BE USED IN PLACE OF ITEMS BELOW): Unknown mimimal contact with family Hx Dementia: Mother Hx Heart Disease: Mother Physical Exam - General General Appearance: Alert, Oriented x3, Cooperative, No acute distress Limitations: No limitations - Head Head exam: Normal inspection - Eye Eye exam: Normal appearance. negative: Conjunctival injection, Scleral icterus - ENT ENT exam: Normal exam, Mucous membranes moist Ear exam: Normal external inspection Nasal Exam: Normal inspection Mouth exam: Normal external inspection - Neck Neck exam: Normal inspection, Full ROM. negative: Tenderness - Respiratory Respiratory exam: Decreased breath sounds, Prolonged expiratory, Rhonchi, Wheezes. negative: Normal lung sounds bilaterally - Cardiovascular Cardiovascular Exam: Regular rate, Normal rhythm, Normal heart sounds - GI/Abdominal GI/Abdominal exam: Soft. negative: Tenderness - Rectal Rectal exam: Deferred - exam: Deferred - Extremities Extremities exam: Normal inspection, Full ROM, Normal capillary refill. negative: Calf tenderness, Pedal edema, Tenderness - Back Back exam: Denies: CVA tenderness (R), CVA tenderness (L) - Neurological Neurological exam: Alert, Oriented X3 - Psychiatric Psychiatric exam: Normal affect, Normal mood - Skin Skin exam: Dry, Intact, Normal color, Warm Course Vital Signs 12/26/17 16:53 Pulse Rate [ 98 H Pulse Ox Probe] Respiratory 20 Rate Blood Pressure 185/79 [Left Arm] Pulse Ox 9 L - Reevaluation(s) Reevaluation #1: The patient is doing well after the breathing treatment She is non labored. Few remaining wheezes. She subjectively feels improved. She is 94% on her 3LN which she states is her baseline oxygen requirement. She does not have any conversational dyspnea She is already requesting DC home. 12/26/17 17:20 12/26/17 17:32 The CBC was reviewed. WBC is 16 12/26/17 17:53 No acute changes on the CMP 12/26/17 18:11 The CXR is consistent with COPD and chronic changes. 12/26/17 18:10 We discussed the results of the tests and questions were answered at the time of discharge. The patient is doing well and is comfortable with DC. DC vitals were reviewed. She remains at baseline without shortness of breath. Oxygen levels in the low 90's on 3ln her baseline We discussed at length reasons to immediately return to the ED as well as close follow up. The patient will call the PCP for close follow up of this ED visit to review this visit and the tests performed Medical Decision Making - Lab Data Result diagrams: 12/26/17 17:15 12/26/17 17:15 Disposition Disposition: Discharge Clinical Impression: COPD exacerbation Disposition: Home, Self-Care Condition: (1) Good Instructions: COPD (Chronic Obstructive Pulmonary Disease) (ED) Additional Instructions: Consider stopping smoking Call your doctor for close follow up of this ER visit Return if you shortness of breath returns or any new concerns Take the Zithromax and the Prednisone as directed Prescriptions: Azithromycin [Zithromax] 250 mg PO DAILY #4 tab Prednisone [Prednisone 20Mg] 20 mg PO BID #10 tab Forms: Patient Portal Access Time of Disposition: 18:12 Quality - Quality Measures Quality Measures: N/A - Blood Pressure Screening Does Patient Have Any of the Following: No Blood Pressure Classification: Hypertensive Reading Systolic Measurement: 185 Diastolic Measurement: 79 Screening for High Blood Pressure: < Pre-Hypertensive BP, F/U Documented > [ G8950] Pre-Hypertensive Follow-up Interventions: Referral to alternative/primary care provider.
[2017-12-26 17:25] LABS: HEMATOCRIT 40.4 % (35.0-47.0); HEMOGLOBIN 12.8 gm/dl (11.6-16.0); MEAN CELL VOLUME 85.8 fl (81-97); MEAN CORPUSCULAR HEMOGLOBIN 27.2 pg (27-33); MEAN CORPUSCULAR HGB CONC 31.7 g/dl (32-36); MEAN PLATELET VOLUME 9.1 fl (7.4-10.4); PLATELET COUNT 420 K/uL (130-400); RED BLOOD COUNT 4.71 M/uL (3.80-5.40); RED CELL DISTRIBUTION WIDTH 19.2 % (11.5-14.5)
[2017-12-26 17:41] LABS: BILIRUBIN,TOTAL 0.2 mg/dL (0.2-1.0)
[2017-12-26 17:42] LABS: TOTAL PROTEIN 6.8 g/dL (6.6-8.7)
[2017-12-26 17:47] LABS: ALB/GLOB RATIO 1.5 (1.1-1.8); ALBUMIN 4.1 g/dL (4.0-5.0)
[2017-12-26 17:59] LABS: PLATELET ESTIMATE NORMAL (NORMAL)
--- NOTE | 2017-12-28 15:13 | RADIOLOGY REPORT ---
EXAM: CHEST 2 VIEWS HISTORY: CHEST PAIN. TECHNIQUE: Frontal and lateral views of the chest. COMPARISON: 12/12/17 chest x-ray. FINDINGS: The heart size is normal. Osteopenia. COPD. No pneumothorax. Atheromatous change thoracic aorta. Accentuation of the normal thoracic kyphosis with a compression fracture deformity of the mid thoracic spine. This has worsened compared with plain films dated 10/15/16. Coarse interstitial changes bilaterally, which may reflect a chronic interstitial process. No confluent airspace opacity. Blunting of the costophrenic angles consistent with tiny effusions and/or pleural thickening. IMPRESSION: 1. UNDERLYING COPD WITH TINY EFFUSIONS AND/OR PLEURAL THICKENING. CHRONIC- APPEARING INTERSTITIAL CHANGE. 2. OSTEOPENIA WITH A SEVERE COMPRESSION DEFORMITY OF T10. THIS IS AGE- INDETERMINATE. J[facility]BER: [id number] [facility]
== END 2017-12-26 18:23 | disposition home or self-care (01) ==
LOC: ER 16:49
DX: J44.1 Chronic obstructive pulmonary disease with (acute) exacerbation (principal); F17.210 Nicotine dependence, cigarettes, uncomplicated
CPT/HCPCS: 71046; 80053; 85027; 94640; 96365; 96375; 99284; J2930

== ENCOUNTER 2018-01-27 18:12 | Emergency (ER) | payer MEDICARE ==
--- NOTE | 2018-01-27 18:39 | Emergency Department Record ---
History of Present Illness - General Chief Complaint: Fall Injury Stated Complaint: FALL Time Seen by Provider: 01/27/18 18:33 Source: Patient Mode of Arrival: Ambulatory Limitations: No limitations - History of Present Illness Initial Comments: 77 yo female presents to following a [id number] while outdoors with her dog just prior to arrival. Patient denies syncope or LOC, reports that she stumbled backwards resulting in injury to the back of the head. Patient denies the use of anticoagulation medications at her baseline. Patient also denies injury to the extremities, and denies numbness, tingling, or extremity weakness on examination. MD Complaint: Fall Onset/Timin -: Hour(s) Fall From: Standing When Fall Occurred: Just prior to arrival Fall Witnessed: No Place Fall Occurred: Street Loss of Consciousness: None Prolonged Down Time?: No Symptoms Prior to Fall: None Location: Head Severity: Mild Severity scale (1-10): 3 Quality: Aching Associated Symptoms: Denies - Dari Coma Scale Eye Response: (4) Open spontaneously Motor Response: (6) Obeys commands Verbal Response: (5) Oriented [place]on Total: 15 - Related Data Allergies Allergy/AdvReac Type Severity Reaction Status Date / Time nortriptyline HCl Allergy Unknown ALTERED Verified 01/27/18 18:28 [From [facility]] MENTAL STATUS Travel Screening - Travel/Exposure Within Last 30 Days Have you traveled within the last 30 days?: No Review of Systems Constitutional: Denies: Chills, Fever, Malaise, Night sweats Eyes: Denies: Eye discharge, Eye pain ENT: Denies: Congestion, Ear pain, Epistaxis Respiratory: Denies: Cough, Dyspnea Cardiovascular: Denies: Chest pain, Dyspnea on exertion Endocrine: Denies: Fatigue, Heat or cold intolerance Gastrointestinal: Denies: Abdominal pain, Nausea, Vomiting Genitourinary: Denies: Incontinence, Retention Musculoskeletal: Reports: Myalgia. Denies: Arthralgia, Back pain Skin: Reports: Other (Abrasions to the left medial toes). Denies: Bruising, Change in color Neurological: Reports: Headache. Denies: Confusion, Numbness, Paresthesias, Tingling, Tremors Psychiatric: Denies: Anxiety Hematological/Lymphatic: Denies: Anemia, Blood Clots Past Medical History - SOCIAL HISTORY Smoking Status: Current every day smoker Alcohol Use: None Drug Use: None - RESPIRATORY Hx Respiratory Disorders: Yes Hx COPD: Yes Comment:: wears O2 as needed - CARDIOVASCULAR Hx Cardio Disorders: No - NEURO Hx Neuro Disorders: Yes Hx CVA: Yes (2017) Hx Neuropathy: Yes - GI Hx GI Disorders: Yes Hx Reflux: Yes Hx of Polyps: Yes - Hx Genitourinary Disorders: No - ENDOCRINE Hx Endocrine Disorders: Yes Hx Thyroid Disease: Yes (Hyper) - MUSCULOSKELETAL Hx Musculoskeletal Disorders: Yes Hx Arthritis: Yes Hx Fibromyalgia: Yes Hx Osteoporosis: Yes - PSYCH Hx Psych Problems: Yes Hx Anxiety: Yes Hx Depression: Yes - HEMATOLOGY/ONCOLOGY Hx Hematology/Oncology Disorders: No Family Medical History Any Significant Family History?: Yes Family Hx Comment (NOT TO BE USED IN PLACE OF ITEMS BELOW): Unknown mimimal contact with family Hx Dementia: Mother Hx Heart Disease: Mother Physical Exam - General General Appearance: Alert, Oriented x3, Cooperative, Mild distress Limitations: No limitations - Head Head exam: Other (Dried blood to the posterior scalp) Head exam detail: Laceration. negative: Abrasion, Contusion, Eubanks's sign, General tenderness, Hematoma - Eye Eye exam: Normal appearance. negative: Conjunctival injection, Periorbital swelling, Periorbital tenderness, Scleral icterus - ENT Ear exam: negative: Auricular hematoma, Auricular trauma Nasal Exam: negative: Active bleeding, Discharge, Dried blood, Foreign body Mouth exam: negative: Drooling, Laceration, Tongue elevation - Neck Neck exam: Normal inspection. negative: Meningismus, Tenderness - Respiratory Respiratory exam: Wheezes, Other (Wheezes bilaterally related to the patient's COPD). negative: Chest wall tenderness, Respiratory distress, Rhonchi, Stridor - Cardiovascular Cardiovascular Exam: Regular rate, Normal rhythm, Normal heart sounds - GI/Abdominal GI/Abdominal exam: Soft. negative: Rebound, Rigid, Tenderness - Rectal Rectal exam: Deferred - exam: Deferred - Extremities Extremities exam: Other (Abrasions to the left foot/toes medially). negative: Calf tenderness, Pedal edema, Tenderness - Back Back exam: Denies: CVA tenderness (R), CVA tenderness (L) - Neurological Neurological exam: Alert, Oriented X3. negative: Motor sensory deficit - Psychiatric Psychiatric exam: Normal affect, Normal mood - Skin Skin exam: Abrasion (as described above), Normal color Type of lesion: abrasion Course Vital Signs 01/27/18 18:29 Temperature 98.1 F Pulse Rate 103 H Respiratory 20 Rate Blood Pressure 142/74 Pulse Ox 93 L - Reevaluation(s) Reevaluation #1: 01/27/18 18:37 Patient was seen and examined, denies other injury than to the posterior scalp region. Patient does not use anticoagulation medications at her baseline. Will obtain CT imaging of the head and neck and reassess following cleaning of the patient's scalp wound. Reevaluation #2: 01/27/18 19:27 CT Brain: Chronic changes, nothing acute CT Cervical Spine: Chronic changes, nothing acute. Reevaluation #3: 01/27/18 19:40 2.5 cm laceration to the right posterior scalp, bleeding controlled. Wound was cleaned and prepped in sterile fashion, no residual FB identified on examination. Wound was repaired with matias (#5) in interrupted fashion. Patient tolerated the procedure well without complications. No bleeding present following repair. Patient appears stable for discharge with wound care instructions and instructions to return in 10-14 days for removal. Patient and family at the bedside verbalize understanding of all instructions. Disposition Disposition: Discharge Clinical Impression: Fall Qualifiers: Encounter type: initial encounter Qualified Code(s): W19.XXXA - Unspecified fall, initial encounter Scalp laceration Qualifiers: Encounter type: initial encounter Qualified Code(s): S01.01XA - Laceration without foreign body of scalp, initial encounter Disposition: Home, Self-Care Condition: (2) Stable Instructions: Staple Care (ED) Additional Instructions: Return to ED if your symptoms worsen or if you have any concerns. Follow-up with your family doctor in 3-5 days as directed. Matias out in 10-14 days. Forms: Patient Portal Access Time of Disposition: 19:39 Quality - Quality Measures Quality Measures: N/A - Blood Pressure Screening Does Patient Have Any of the Following: No Blood Pressure Classification: Hypertensive Reading Systolic Measurement: 142 Diastolic Measurement: 74 Screening for High Blood Pressure: < First Hypertensive BP, F/U Documented > [ G8950] First Hypertensive Follow-up Interventions: Referral to alternative/primary care provider.
--- NOTE | 2018-01-29 08:43 | CT SCAN REPORT ---
EXAM: EMERGENCY HEAD CT HISTORY: PATIENT FELL WITH HEAD INJURY. TECHNIQUE: Axial CT scan of the head was performed without IV contrast. Comparison: Head CT 08/16/17. FINDINGS: No definite acute intracranial hemorrhage identified. No focal mass effect or midline shift apparent. Mild generalized atrophy with chronic appearing deep white matter changes as before, nonspecific, but likely representing chronic small vessel deep white matter ischemic disease. No definite acute infarct or intracranial mass lesion seen. No depressed calvarial fracture evident. Opacification of some left mastoid air cells particularly inferiorly also present previously. IMPRESSION: 1. GENERALIZED ATROPHY WITH CHRONIC APPEARING DEEP WHITE MATTER CHANGES BEFORE. 2. NO ACUTE INTRACRANIAL HEMORRHAGE OR FOCAL MASS EFFECT IDENTIFIED. 3. OPACIFICATION OF SOME LEFT MASTOID AIR CELLS INFERIORLY BEFORE. JOB NUMBER: [id number] [facility]
--- NOTE | 2018-01-29 09:06 | CT SCAN REPORT ---
EXAM: EMERGENCY CT SCAN OF THE CERVICAL SPINE HISTORY: PATIENT FELL WITH HEAD INJURY TODAY. TECHNIQUE: Axial CT scan of the entire cervical spine was performed without IV contrast. Comparison: None. Encounter: Initial. FINDINGS: Opacification of some left mastoid air cells inferiorly as noted on the head CT today. Apical pleural thickening on the right. There are tiny bullae in the apices as well suggesting emphysema. Advanced degenerative arthritis at the right TMJ, less so at the left TMJ. No definite fracture of the cervical spine identified. No prevertebral soft tissue swelling is seen. Degenerative change at the odontoid-anterior arch of C1 articulation. Some mild spurring elsewhere in the cervical spine particularly at the C5-C6 interspace anteriorly. IMPRESSION: 1. NO DEFINITE FRACTURE OR PREVERTEBRAL SOFT TISSUE SWELLING EVIDENT. 2. MULTILEVEL DEGENERATIVE CHANGE IN THE CERVICAL SPINE. 3. APICAL PLEURAL THICKENING ON THE RIGHT AND PROBABLY SOME TINY BULLAE IN THE LUNG APICES SUGGESTING EMPHYSEMA. JOB NUMBER: [id number] MTDD
== END 2018-01-27 19:45 | disposition home or self-care (01) ==
LOC: ER 18:12
DX: S01.01XA Laceration without foreign body of scalp, initial encounter (principal); S90.415A Abrasion, left lesser toe(s), initial encounter; J44.9 Chronic obstructive pulmonary disease, unspecified; W01.10XA Fall on same level from slipping, tripping and stumbling with subsequent striking against unspecified object, initial encounter; Y93.K9 Activity, other involving animal care; Y92.410 Unspecified street and highway as the place of occurrence of the external cause; F17.210 Nicotine dependence, cigarettes, uncomplicated; Z99.81 Dependence on supplemental oxygen
CPT/HCPCS: 12001; 70450; 72125; 99283; 99284

== ENCOUNTER 2018-04-24 10:22 | Emergency (ER) | payer MEDICARE ==
[2018-04-24] MEDS ORDERED: ACETAMINOPHEN 1,000 MG/100 ML BTL IVPB ONE (10:30)
--- NOTE | 2018-04-24 10:33 | Emergency Department Record ---
History of Present Illness - General Chief Complaint: Pain Stated Complaint: RIB PAIN Time Seen by Provider: 04/24/18 10:26 Source: Patient Mode of Arrival: Ambulatory Limitations: No limitations - History of Present Illness Initial Comments: 77 yo female presents with pain in her ribs, chest, under her breasts for about a week. She thinks the pain started while reaching for an object a week ago. The pain has been increasing over the week. The pain moves back and forth across the lower chest and ribs. She has cough chronically that is unchanged. She has a history of spinal compression fractures in the past. She is taking Gary three times daily without control of her pain. No nausea, vomiting or diarrhea. No falls. She has a history of COPD on Home Oxygen, CVA, pneumonia, smoking, hyperthyroidism, fibromyalgia, OA, depression, anxiety. PCP is Dr Victor. Complaint: Chest pain, Other (Ribs) Onset/Timin -: Week(s) (1) Onset: Other Pain Location: Left chest Pain Radiation: Other (radiates all over the chest) Severity: Moderate Severity scale (1-10): 10 Consistency: Constant Improves With: Remaining still, Rest Worsens With: Inspiration, Movement, Palpation Context: Other Anginal Symptoms: Other (chest pain on the left) Other Symptoms: Other Treatments Prior to Arrival: None - Related Data Home Medications Medication Instructions Recorded Confirmed Last Taken Apixaban [Eliquis] 2.5 mg PO BID 04/24/18 04/24/18 Unknown Aspirin 325 mg PO DAILY 04/24/18 04/24/18 Unknown Atorvastatin Calcium 80 mg PO QHS 04/24/18 04/24/18 Unknown Fluticasone/Salmeterol [Advair 1 each IH BID 04/24/18 04/24/18 Unknown 100-50 Diskus] Hydrocodone/Acetaminophen [Gary 1 each PO TID 04/24/18 04/24/18 04/24/18 7.5-325 Tablet] Ipratropium/Albuterol [Duoneb] 3 ml IH Q4H 04/24/18 04/24/18 Unknown Quetiapine Fumarate [Seroquel] 50 mg PO QHS 04/24/18 04/24/18 Unknown Tizanidine HCl [Zanaflex] 4 mg PO TID 04/24/18 04/24/18 Unknown Allergies Allergy/AdvReac Type Severity Reaction Status Date / Time nortriptyline HCl Allergy Unknown ALTERED Verified 04/24/18 10:29 [From [facility]] MENTAL STATUS Travel Screening - Travel/Exposure Within Last 30 Days Have you traveled within the last 30 days?: No Review of Systems Constitutional: Denies: Chills, Fever, Malaise, Weakness Eyes: Denies: Eye discharge ENT: Denies: Congestion, Throat pain Respiratory: Reports: Cough, Dyspnea. Denies: Hemoptysis, Stridor, Wheezes Cardiovascular: Reports: Chest pain. Denies: Edema, Palpitations, Syncope Endocrine: Denies: Fatigue, Polydipsia, Polyuria Gastrointestinal: Denies: Abdominal pain, Diarrhea, Nausea, Vomiting Genitourinary: Denies: Dysuria, Urgency Musculoskeletal: Reports: Back pain. Denies: Arthralgia, Myalgia Skin: Denies: Bruising, Change in color, Rash Neurological: Denies: Headache, Numbness, Weakness Psychiatric: Denies: Anxiety Hematological/Lymphatic: Denies: Blood Clots, Easy bleeding, Easy bruising, Swollen glands Past Medical History - SOCIAL HISTORY Smoking Status: Current every day smoker Drug Use: None - RESPIRATORY Hx Respiratory Disorders: Yes Hx COPD: Yes Comment:: wears O2 as needed - CARDIOVASCULAR Hx Cardio Disorders: No - NEURO Hx Neuro Disorders: Yes Hx CVA: Yes (2017) Hx Neuropathy: Yes - GI Hx GI Disorders: Yes Hx Reflux: Yes Hx of Polyps: Yes - Hx Genitourinary Disorders: No - ENDOCRINE Hx Endocrine Disorders: Yes Hx Thyroid Disease: Yes (Hyper) - MUSCULOSKELETAL Hx Musculoskeletal Disorders: Yes Hx Arthritis: Yes Hx Fibromyalgia: Yes Hx Osteoporosis: Yes - PSYCH Hx Psych Problems: Yes Hx Anxiety: Yes Hx Depression: Yes - HEMATOLOGY/ONCOLOGY Hx Hematology/Oncology Disorders: No Family Medical History Family Hx Comment (NOT TO BE USED IN PLACE OF ITEMS BELOW): Unknown mimimal contact with family Hx Dementia: Mother Hx Heart Disease: Mother Physical Exam - General General Appearance: Alert, Oriented x3, Cooperative, No acute distress Limitations: No limitations - Head Head exam: Atraumatic, Normal inspection - Eye Eye exam: Normal appearance. negative: Conjunctival injection, Scleral icterus - ENT ENT exam: Normal exam, Mucous membranes moist Ear exam: Normal external inspection Nasal Exam: Normal inspection Mouth exam: Normal external inspection Teeth exam: Normal inspection - Neck Neck exam: Normal inspection, Full ROM. negative: Tenderness - Respiratory Respiratory exam: Decreased breath sounds, Prolonged expiratory, Rhonchi, Wheezes. negative: Normal lung sounds bilaterally, Chest wall tenderness, Respiratory distress - Cardiovascular Cardiovascular Exam: Regular rate, Normal rhythm, Normal heart sounds, Tachycardia Peripheral Pulses: 2+: Radial (R), Radial (L) - GI/Abdominal GI/Abdominal exam: Soft. negative: Distended, Guarding, Rebound, Rigid, Tenderness - Rectal Rectal exam: Deferred - exam: Deferred - Extremities Extremities exam: Normal inspection. negative: Pedal edema - Back Back exam: Denies: CVA tenderness (R), CVA tenderness (L) - Neurological Neurological exam: Alert, Oriented X3 - Psychiatric Psychiatric exam: Normal affect, Normal mood - Skin Skin exam: Dry, Intact, Normal color, Warm Course - Reevaluation(s) Reevaluation #1: EKG 10:42 sinus rhythm rate 83 intervals normal [place] L ST Inverted T waves V2-V6 LVH Prior EKG was 12/12/17. the T wave inversion in V2-V6 is new 04/24/18 10:46 04/24/18 11:53 No acute changes on the CMP The troponin is normal 04/24/18 13:07 CT reviewed. No PE. Multiple compression fractures. T9 noted to be sclerotic. Can not rule out malignancy. Ectasia of the aorta. Given the new EKG changes the case will be discussed with cardiology. The family prefers [facility]. 04/24/18 13:24 Through [facility] I LIANA Rojas. We discussed the somewhat atypical symptoms but new EKG changes and no cardiology available at [facility] today or this weekend. He accepts the patient for transfer. 04/24/18 17:49 Repeat Troponin is negative [facility] notified the patient now has a bed Medical Decision Making - Lab Data Result diagrams: 04/24/18 10:43 04/24/18 10:43 Disposition Disposition: Transfer Clinical Impression: Chest pain, Compression fracture Disposition: Acute Care Hospital Transfer Transfer To: [facility] Reason For Transfer: Atypical Chest pain with EKG changes Accepting Physician: Crystal Time Discussed w/Accepting Physician: 13:24 Condition: (2) Stable Forms: Patient Portal Access Time of Disposition: 13:24 Quality - Quality Measures Quality Measures: N/A - Blood Pressure Screening Does Patient Have Any of the Following: Active Dx of HTN Blood Pressure Classification: Hypertensive Reading Systolic Measurement: 166 Diastolic Measurement: 76 Screening for High Blood Pressure: Patient Exclusion, Hx of HTN [[id number]]
[2018-04-24 10:47] LABS: BASO % 0.5 % (0-6); EOS % 1.3 % (0-6); GRAN % 60.8 % (47-80); HEMATOCRIT 39.8 % (35.0-47.0); HEMOGLOBIN 12.3 gm/dl (11.6-16.0); LYMPH % 30.6 % (16-45); MEAN CORPUSCULAR HEMOGLOBIN 27.8 pg (27-33); MEAN CORPUSCULAR HGB CONC 30.9 g/dl (32-36); MEAN PLATELET VOLUME 8.7 fl (7.4-10.4); MONO % 6.8 % (0-9); PLATELET COUNT 242 K/uL (130-400); RED BLOOD COUNT 4.42 M/uL (3.80-5.40); RED CELL DISTRIBUTION WIDTH 17.5 % (11.5-14.5)
[2018-04-24] MEDS ORDERED: MORPHINE SULFATE 10 MG/ML VIAL IVP ONE ×2 (10:48→17:49)
[2018-04-24 11:16] LABS: BLOOD UREA NITROGEN 17 mg/dL (8-23); CREATININE 0.8 mg/dL (0.5-0.9); EST GLOMERULAR FILTRATION RATE > 60 mL/min
[2018-04-24 11:17] LABS: TOTAL PROTEIN 6.3 g/dL (6.6-8.7)
[2018-04-24 11:19] LABS: GLUCOSE,RANDOM 106 mg/dL (74-109)
[2018-04-24 11:21] LABS: ALT/SGPT 8 U/L (<33)
[2018-04-24 11:22] LABS: ALB/GLOB RATIO 1.5 (1.1-1.8); ALBUMIN 3.8 g/dL (4.0-5.0); ALKALINE PHOSPHATASE 179 U/L (35-104); AST/SGOT 14 U/L (10.0-35.0)
--- NOTE | 2018-04-25 20:18 | CT ANGIOGRAM REPORT ---
EXAM: CT ANGIOGRAM CHEST CTA w contrast HISTORY: LEFT-SIDED CHEST PAIN FOR A DAY, POSSIBLE PE. TECHNIQUE: CTA of the chest performed following the intravenous administration of iodinated contrast media. Please see the medical record for IV contrast specifics. Postprocessing on an independent workstation was performed with multiple 3D MIP series obtained. COMPARISON: Chest CT dated 03/05/13. FINDINGS: No definite PE identified. There is some ectasia of the ascending aorta measuring about 3.8 cm in diameter. Mild cardiomegaly. No pleural or pericardial effusion evident. There is an approximately 2.2 cm cyst in the mid portion of the left kidney laterally with a CT density of 9 and a smaller cyst medially in the left kidney measuring 8 mm in size with a CT density of 10, both consistent with cysts. These appear to have been present on a prior abdomen CT of 09/09/17 as well. There is prominent compression of the body of T9 and moderate compression of the body of T12 and mild compression of the bodies of T7, T10, T11, and L1. These have all progressed somewhat from the prior chest CT of 03/05/13. Mild thoracic curve to the right. There is some relative sclerosis in the compressed bodies of T9 and T12 as well and the possibility of pathologic fracture cannot be excluded. There are tiny bullae in the lungs consistent with centrilobular emphysema. IMPRESSION: 1. NO DEFINITE PE IDENTIFIED. 2. TINY BULLAE IN THE LUNGS CONSISTENT WITH CENTRILOBULAR EMPHYSEMA. 3. CARDIOMEGALY. 4. MILD ECTASIA OF THE ASCENDING AORTA. 5. MULTIPLE COMPRESSION FRACTURES IN THE THORACIC AND UPPER LUMBAR SPINE, WHICH ARE PROGRESSED FROM 03/05/13. THE GREATEST OF THESE INVOLVING T9 AND T12, HAVE A SOMEWHAT SCLEROTIC APPEARANCE WELL AND PATHOLOGIC COMPRESSION FRACTURES CANNOT BE EXCLUDED. 6. COUPLE OF LEFT RENAL CYSTS, ALSO SEEN PREVIOUSLY. JOB NUMBER: [id number] MTDD
== END 2018-04-24 18:45 | disposition short-term general hospital (02) ==
LOC: ER 10:22
DX: R07.89 Other chest pain (principal); M48.54XS Collapsed vertebra, not elsewhere classified, thoracic region, sequela of fracture; M48.56XA Collapsed vertebra, not elsewhere classified, lumbar region, initial encounter for fracture; M79.7 Fibromyalgia; E05.90 Thyrotoxicosis, unspecified without thyrotoxic crisis or storm; J44.9 Chronic obstructive pulmonary disease, unspecified; F17.210 Nicotine dependence, cigarettes, uncomplicated; Z86.73 Personal history of transient ischemic attack (TIA), and cerebral infarction without residual deficits; Z99.81 Dependence on supplemental oxygen
CPT/HCPCS: 99285 ×2; 96376; 96374; 85025; 80053; 84484; 71275; 93005; 93010; Q9967; J2270